=== PATIENT | female | born 1930 | race Caucasian/White ===

== ENCOUNTER 2016-05-03 13:09 | Emergency (ER) | payer MEDICARE, OTHER ==
[2016-05-03] MEDS ORDERED: Sodium Chloride 0.9% 1,000 ML IV ONE (13:42)
[2016-05-03] MEDS ORDERED: Sodium Chloride 0.9% 10 ML Syringe FLUSH PRN (13:42)
[2016-05-03] MEDS ORDERED: Loperamide 2 MG Cap PO ONE (13:45)
[2016-05-03] MEDS ORDERED: Ondansetron 4 MG/2 ML SDV IV ONE (13:45)
[2016-05-03 14:24] LABS: CHLORIDE,CL 99 mmol/L (101-111); SODIUM,NA 134 mmol/L (135-145)
[2016-05-03 15:21] VITALS: BP 122/68
[2016-05-03] MEDS ORDERED: Ciprofloxacin in D5W 400 MG in Premix Bag 1 BAG IV ONE ×2 (15:33)
[2016-05-03] MEDS ORDERED: Ondansetron 4 MG Tab.DIS PO ONE (17:00)
--- NOTE | 2016-05-04 16:24 | ER ---
SUBJECTIVE: The patient is an 85-year-old female, who is brought in by her family because she has had some nausea, vomiting, and some diarrhea. Apparently, she had a UTI, it was diagnosed by Dr. Laguna, her PCP, and she was placed on Bactrim. However, urine cultures revealed the Bactrim was not the correct medicine and infection was resistant to Bactrim. She was then switched to Cipro, which the patient not tolerated very well. She has apparently gotten a couple doses of Cipro down, but missed many of them and began to have nausea, vomiting, and some diarrhea as well. She comes in because she has missed multiple doses. She is weak, tired, feels dehydrated, not able to keep anything down. She has kept her medicines down, however. No bites, stings, or rashes. No chest pain or shortness of breath. No syncope or near syncope. No headache. No chest pain. No melena. PAST MEDICAL HISTORY: Significant for hypertension, hypothyroidism, osteoarthritis, hyperlipidemia, urinary tract infections, CAD, angina, spinal fractures with surgical fixation. CURRENT MEDICATIONS: Include: 1. Levothyroxine 125 mcg p.o. daily. 2. Lisinopril 5 mg p.o. daily. 3. Metoprolol 100 mg p.o. daily. 4. Oxaprozin 2 tablets p.o. daily. 5. Lipitor 20 mg p.o. daily. 6. Ondansetron p.r.n. ALLERGIES: She states she is allergic to Celebrex, causes hives. Codeine causes hives. Meperidine causes hives. Propoxyphene causes hives. SOCIAL HISTORY: Lives alone. She is , retired, family is nearby. No substance abuse. REVIEW OF SYSTEMS: Fatigue, lethargy, general malaise, general weakness, feels dry. No headache. Syncope, or near syncope. No ENT issues, vision changes, chest pain, or shortness of breath. No abdominal pain at this point. She does have some mild chronic back pain. No new changes. No new falls or trauma. No lower extremity swelling. She does have diarrhea, nausea, vomiting, she does not tolerate the Cipro. OBJECTIVE: Vital Signs: Height is 1.52 meters, weight is 47 kg, blood pressure is 122/68, respiratory rate 16, oxygen is 100% on room air. She is afebrile. Heart rate is 112. General: Pleasant elderly little lady very thin and small. HEENT: Normocephalic and atraumatic. A and O x3. GCS of 15. Fairly good historian. Conjunctivae are clear. Mucous membranes are moist. Neck: Unremarkable. Chest: Clear. CV: RRR. Abdomen: Soft, benign. Atraumatic back. No CVAT. Extremities: No calf tenderness. No swelling. LAB/STUDIES: Blood cultures were obtained, stool occult blood was requested. Influenza was requested. White count was mildly elevated at 10.2, she has no anemia, platelets are normal. Differential non-remarkable. Sodium was mildly low 134, chloride 99, otherwise her potassium is normal. Her BUN and creatinine were elevated at 44 and 1.6. Glucose is 144. Her lactic acid was 2.0 and normal. Her total bili and LFTs were all normal. Amylase was normal. Her ketones in the serum were negative. Her urinalysis was yellow and cloudy, showed moderate occult blood, small amount of leukocyte esterase, negative nitrites, rare bacteria. Again, she has already been on Bactrim initially and then Cipro and so it is partially treated. EMERGENCY ROOM COURSE: A line was placed. The patient was given a liter of the capital IVF, blood was drawn, blood cultures were obtained. Guaiac stool was obtained. Influenza was obtained. She was given Cipro IV after cultures were obtained, in an attempt to try to catch her back up on antibiotics. She was given 1 tablet of Imodium, she was given multiple doses of Zofran. By the end of her long ER stay mostly was being observed to make sure she was doing okay, she was able to eat some crackers and then some applesauce and was feeling quite a bit better. She had multiple family with her because she was now holding down food and fluids and a prescription of Zofran will be given to her and she is much more stable. It was felt that she could thrive at home probably better than being in the hospital. She could be in her own environment with her own family. All of the workup and labs and her course were discussed with the patient and her attendant family, which includes her son and her daughters. Plan was thoroughly discussed and made, and she was then sent home with her family. ASSESSMENT: 1. Nonbloody nausea and vomiting. 2. Volume depletion/dehydration with IV rehydration given in the ER. 3. Diarrhea. 4. Ongoing urinary tract infection partially treated, but the patient unable to tolerate Cipro. 5. General weakness and fatigue. PLAN: Discharged the patient to home in stable and improved condition. She is now tolerating food and fluids, and she has been rehydrated and a prescription of Zofran is given to her. Stay with family. Fall precautions. Keep hydrated. Advanced diet is able. See PCP this next week or return for emergent issues. [facility] /[id number]
== END 2016-05-03 18:14 | disposition home or self-care (01) ==
LOC: DL.ED 13:09
DX: E86.0 Dehydration (principal); N39.0 Urinary tract infection, site not specified; I10 Essential (primary) hypertension; E03.9 Hypothyroidism, unspecified; M19.90 Unspecified osteoarthritis, unspecified site; I25.10 Atherosclerotic heart disease of native coronary artery without angina pectoris; Z88.5 Allergy status to narcotic agent; Z88.8 Allergy status to other drugs, medicaments and biological substances
CPT/HCPCS: 36415; 80053; 81001; 82009; 82150; 82272; 83605; 85025; 87040; 87804; 96365; 96367; 96375; 99284; A9270; J0744; J2405; J7030; J7050

== ENCOUNTER 2016-05-04 09:25 | Inpatient (IN) | payer MEDICARE, OTHER ==
[2016-05-04] MEDS ORDERED: Sodium Chloride 0.9% 1,000 ML IV ONE (10:15)
[2016-05-04] MEDS ORDERED: Ondansetron 4 MG/2 ML SDV IV ONE (10:16)
[2016-05-04] MEDS ORDERED: Iopamidol 612 MG/ML 50 ML SDV IVPUSH ONE (10:17)
--- NOTE | 2016-05-04 12:17 | ER ---
SUBJECTIVE: The patient is an 85-year-old female, who was seen yesterday in the emergency room, please reference this note, she came in because of some general weakness, some nausea and vomiting and a few episodes of diarrhea. She initially had been diagnosed with a UTI and was placed on Bactrim; however, when urine cultures were returned, it was found that Bactrim was resistant to treating the infection and she was then placed on Cipro. However, she did not tolerate the Cipro well. It upset her stomach and she had nausea, vomiting, and some diarrhea. She did not have any abdominal pain. At yesterday's appointment in the ER, she denied abdominal pain and her abdominal exam was benign. During yesterday's visit, she was given some IV fluids. She was given IV Zofran, and by the end of her visit after her extensive blood work and workup, and a long ER stay, she was able to eat crackers, eat some applesauce and was feeling much better. She had multiple family members with her, who felt they could take care of her and a prescription of Zofran was sent home with her. However, the last Zofran she received was the one she received in the hospital in the ER, she went home and she vomited all night, apparently was up every half hour vomiting, she did not take any further Zofran, she had been given Zofran ODTs so that she could take it regardless if she was vomiting. She did take another Zofran this morning at 6 a.m., but by that time, she vomited all night, had multiple episodes of diarrhea and was feeling very weak again. Her son did call the patient's PCP, Dr. Laguna, who then called this provider, and advised that he wanted the patient to be back to the ER and then to be admitted to the hospital. Upon admit to the ER this morning, the patient appears in her usual state, she is pleasant, smiling, interactive, she is with her son. She complains of vomiting all night. It was nonbloody, she admits to not taking the Zofran until this morning at 6 a.m. She has not eaten all night. She has had several episodes of diarrhea. No falls or trauma. No chest pain or shortness of breath. Mild abdominal discomfort. Otherwise back to her baseline state of yesterday when she arrived. She feels generally weak. She is very cooperative, interactive, and appropriate, however. PAST MEDICAL HISTORY: Significant for osteoarthritis, hypothyroidism, hypertension, hyperlipidemia, urinary tract infection, angina, spinal fracture with surgical fixation. CURRENT MEDICATIONS: Include: 1. Levothyroxine 125 mcg p.o. daily. 2. Lisinopril 5 mg p.o. daily. 3. Metoprolol 100 mg p.o. daily. 4. Oxaprozin 2 tablets p.o. daily. 5. Lipitor 20 mg p.o. daily. 6. Ondansetron given yesterday 4 mg q.6 hours p.r.n. ALLERGIES: She is allergic to Celebrex, causes hives. Codeine causes hives. Meperidine causes hives. Propoxyphene causes hives. SOCIAL HISTORY: She lives alone in her own home. She does have family around. REVIEW OF SYSTEMS: Fatigue. General weakness. Denies headache. Denies syncope. No ENT issues. No changes in vision. No chest pain. No shortness of breath. She has mild abdominal discomfort more from the vomiting. She has diarrhea as well. No new back pain. No new falls. No rash. Please see HPI. OBJECTIVE: Vital Signs: Height is 1.52 meters, weight is 47.2 kg, she is afebrile, heart rate is 104, blood pressure is 148/72, respiratory rate 18, and oxygen is 98% on room air. General: Appears at baseline, smiling, interactive. HEENT: Normocephalic and atraumatic. No distress. Nontoxic. Lungs: No respiratory distress. Extremities: Pulses are palpable in all 4 extremities well. Abdomen: Soft, fairly benign with some mild discomfort more in the midepigastric area. She does state she does have some cramping down below. Her abdomen appears atraumatic. Back: No CVAT. Extremities: No swelling. No calf tenderness. Skin: Clear. LAB/STUDIES: White count is elevated at 15.6, hemoglobin and hematocrit are normal, platelets are normal. Differential shows mild elevation of PMNs at 83.1. Sodium is mildly low 133, potassium is 4.0, chloride is 99. Her CO2 and gap are normal, BUN is 37, and her creatinine is 1.4, both are up from yesterday. Glucose is 150. A non-contrasted abdominopelvic CAT scan (non- contrasted secondary to the patient's GFR and creatinine and BUN), was performed, it does show some possible very early small bowel obstruction with slight air-fluid levels possibly representing an ileus. Otherwise nonspecific. She is having diarrhea. No acute diverticulitis, free air, or other changes. EMERGENCY ROOM COURSE: A line was started, and the patient was given IV fluids and IV Zofran. She remained stable. I did discuss the patient with Dr. Jasso, who is the hospitalist, and also Dr. Laguna was spoken to twice on the phone this morning about the patient and he wants her admitted. Dr. Jasso graciously agreed to admit the patient. ASSESSMENT: 1. Diarrhea with leukocytosis and abdominal discomfort with CT showing possible early small-bowel obstruction versus ileus. 2. Intractable nausea and vomiting. 3. Volume depletion/dehydration. 4. Acute renal failure likely secondary to volume depletion/dehydration, secondary to nausea, vomiting, and diarrhea. 5. Urinary tract infection, being treated initially with Bactrim and then changed to Cipro, the patient received IV Cipro yesterday. PLAN: Admit the patient to the hospital, she will continue to get IV fluids. We will keep her n.p.o. for now. She is getting Zofran. [facility] /[id number]
--- NOTE | 2016-05-04 12:17 | PCM.HP ---
H&P History of Present Illness - General Date of Service: 05/04/16 Admit Problem/Dx: UTI with nausea and Vomiting and also partial SBO Source of Information: Patient, Family History Limitations: Reports: No limitations - History of Present Illness Initial Comments - Free Text/Narative: This is a 85 Y/O F with PMHX of Hypertension, Hypothyroidiam, Dyslipidemia, Fibromyalgia ., Spinal sternosis S/P surgey ,CAD, past H/O surgery Hysterectomy , Total Rt Hip Arthroplasty and appendectomy. The pt was initially seen in Clinic by Dr. Lagnua on 04/19/16 for increased urinary Frequency and had U/C that showed E. Colli >100,000 and started her on Bactrim and 3 days later changed to Cipro but she was nauseated and has been having diarrhea 2-3 times a day for the last 4-5 days and did not take the Cipro, completed on 2-3 days therapy. She is not feeling well, came ED with diarrhea and nausea/Vomiting/ Dehydration. Had CT abd/pelvis ,showed there are multiple loops of dialated small bowel with air fluid level, this may represent ileus or early small bowel obstruction, diverticulosis of rectosigmoid, no diverticulitis. Onset of Symptoms: Reports: gradual Severity: moderate Associated Symptoms: Reports: nausea/vomiting - Related Data Allergies/Adverse Reactions: Allergies Allergy/AdvReac Type Severity Reaction Status Date / Time celecoxib [From Celebrex] Allergy Hives Verified 05/04/16 10:02 codeine Allergy Hives Verified 05/04/16 10:02 meperidine Allergy Hives Verified 05/04/16 10:02 propoxyphene Allergy Hives Verified 05/04/16 10:02 Home Medications: Home Meds Levothyroxine 125 mcg PO DAILY 05/03/16 [History] Lisinopril 5 mg PO DAILY 05/03/16 [History] Metoprolol Succinate 100 mg PO DAILY 05/03/16 [History] Oxaprozin [Oxaprozin] 2 tab PO DAILY 05/03/16 [History] atorvaSTATin [Lipitor] 20 mg PO DAILY 05/03/16 [History] Ondansetron [Ondansetron ODT] 4 mg PO Q6H PRN 05/04/16 [History] Past Medical History Cardiovascular History: Reports: Angina, Hypertension Genitourinary History: Reports: UTI, recurrent Musculoskeletal History: Reports: Fracture, Other (see below) Other Musculoskeletal History: spinal fracture with surgical fixation last year Social & Family History - Tobacco Use Smoking Status *Q: Never Smoker - Caffeine Use Caffeine Use: Reports: None - Recreational Drug Use Recreational Drug Use: No H&P Review of Systems - Review of Systems: Review Of Systems: See Below General: Reports: weakness, decreased appetite. Denies: fever, chills HEENT: Denies: dysphasia, eye pain, post nasal drip, sore throat, visual changes Pulmonary: Denies: Shortness of Breath, Pleuritic Chest Pain, Cough, Sputum Cardiovascular: Denies: lightheadedness Gastrointestinal: Reports: Abdominal pain, Diarrhea, Decreased appetite, Nausea , Vomiting Genitourinary: Reports: dysuria, frequency, urgency. Denies: burning, hematuria , flank pain Musculoskeletal: Denies: neck pain, shoulder pain Skin: Denies: jaundice, bruising, pruritis, rash Neurological: Denies: Confusion, Syncope, Tingling Immunologic: Reports: no symptoms Exam - Exam Exam: See Below - Vital Signs Vital Signs: Last Vital Signs Temp 36.6 C 05/04/16 11:52 Pulse 101 H 05/04/16 11:52 Resp 18 05/04/16 11:52 BP 116/92 H 05/04/16 11:52 Pulse Ox 93 L 05/04/16 11:52 Weight: 47.174 kg - Exam Quality Assessment: DVT prophylaxis. No: supplemental oxygen, urinary catheter General: alert, oriented, cooperative, other (not in acute distress) HEENT: Conjunctiva clear, Hearing intact, Mucosa moist & pink, Normal nasal septum Neck: supple. No: lymphadenopathy, thyromegaly Lungs: Clear to auscultation, Normal respiratory effort Cardiovascular: regular rate, regular rhythm, systolic murmur Abdomen: normal bowel sounds, soft, tenderness. No: hepatomegaly (Female) Exam: Deferred Rectal (Female) Exam: Deferred Back Exam: normal inspection Extremities: normal pulses. No: cyanosis, calf tenderness, edema Skin: warm, dry, intact Neurological: cranial nerves intact, reflexes equal bilateral Neuro Extensive - Mental Status: alert, oriented x3, normal mood/affect, normal cognition, memory intact Neuro Extensive - Motor, Sensory, Reflexes: CN II-XII intact, normal gait, normal reflexes Psychiatric: alert, normal affect, normal mood - Patient Data Result Diagrams: 05/04/16 09:44 05/04/16 09:44 *Q Meaningful Use (ADM) - VTE *Q VTE Criteria *Q: - Stroke *Q Stroke Criteria *Q: - AMI *Q AMI Criteria *Q: - Problem List (1) Abdominal pain SNOMED Code(s): 51622378 ICD Code: R10.9 - UNSPECIFIED ABDOMINAL PAIN Status: Acute Current Visit : Yes (2) Diarrhea SNOMED Code(s): 85366559 ICD Code: R19.7 - DIARRHEA, UNSPECIFIED Status: Acute Current Visit: Yes (3) Nausea & vomiting SNOMED Code(s): 21822319 ICD Code: R11.2 - NAUSEA WITH VOMITING, UNSPECIFIED Status: Acute Current Visit: Yes (4) SBO (small bowel obstruction) SNOMED Code(s): 120478432 ICD Code: K56.69 - OTHER INTESTINAL OBSTRUCTION Status: Acute Current Visit: Yes (5) UTI (urinary tract infection) SNOMED Code(s): 14533678 ICD Code: N39.0 - URINARY TRACT INFECTION, SITE NOT SPECIFIED Status: Acute Current Visit: Yes (6) HTN (hypertension) SNOMED Code(s): 20450497 ICD Code: I10 - ESSENTIAL (PRIMARY) HYPERTENSION Status: Acute Current Visit: Yes Problem List Initiated/Reviewed/Updated: Yes Orders Last 24hrs: Medication Orders Sodium Chloride (Normal Saline) 1,000 mls @ 500 mls/hr IV .BOLUS ONE Stop: 05/04/16 12:14 Last Admin: 05/04/16 10:25 Dose: 500 mls/hr Sodium Chloride (Saline Flush) 10 ml FLUSH ASDIRECTED PRN PRN Reason: Keep Vein Open Assessment/Plan Comment:: This is a 85 Y/O F with PMHX of Hypertension, Hypothyroidiam, Dyslipidemia, Fibromyalgia ., Spinal sternosis S/P surgey ,CAD, past H/O surgery Hysterectomy , Total Rt Hip Arthroplasty and appendectomy. The pt was initially seen in Clinic by Dr. Laguna on 04/19/16 for increased urinary Frequency and had U/C that showed E. Colli >100,000 and started her on Bactrim and 3 days later changed to Cipro but she was nauseated and has been having diarrhea 2-3 times a day for the last 4-5 days and did not take the Cipro, completed on 2-3 days therapy. She is not feeling well, came ED with diarrhea and nausea/Vomiting/ Dehydration. Had CT abd/pelvis ,showed there are multiple loops of dialated small bowel with air fluid level, this may represent ileus or early small bowel obstruction, diverticulosis of rectosigmoid, no diverticulitis. IMPRESSION AND PLAN: 1. Abdominal Pain: This is likely from partial Small bowel obstruction -Will keep NPO -Will continue IV fluids D5 Ns at 100 ml/hr -Will Place NG tube with low wall suction -Will advance diet if No significant NG out put 2. Nausea and Vomiting: This is also likely from partial SBO -Will continue IV fluids -Will give IV Zofran 40 mg q6 hrs PRN -Keep NPO 3. UTI: The had U/A on 04/19/16 and it's E. Coli _will start Ceftriaxone at 1 gm IV q24 hrs 4. Diarrhea: This could be secondary to Abx/SBO -Will send stool for C. Diff -Continue IV fluids and NPO status 5. HTN: Will continue Home medication ( but will hold now for NPO) and give IV meds if BP is elevated 6, Hypothyroidism: Continue Home medication ( hold now for NPO) 7. GI prophylaxis: give IV protonix 8. DVT prophylaxis: Heparin 5000 units q8 hrs 9. Code Status: DNR/DNI
[2016-05-04] MEDS ORDERED: Ondansetron 4 MG/2 ML SDV IV PRN ×2 (14:07)
[2016-05-04] MEDS: cefTRIAXone 1 GM in Sodium Chloride 0.9% 50 ML IV SCH (14:15)
[2016-05-04] MEDS: Dextrose 5%-0.9% NaCl 1,000 ML IV SCH (14:15)
[2016-05-04] MEDS: Heparin Sodium 5,000 Units/ML Vial SUBCUT SCH ×2 (14:30→21:54)
[2016-05-05] MEDS: Dextrose 5%-0.9% NaCl 1,000 ML IV SCH ×3 (00:54→22:05)
[2016-05-05] MEDS: Heparin Sodium 5,000 Units/ML Vial SUBCUT SCH (05:43)
[2016-05-05] MEDS: Pantoprazole 40 MG Vial IVPUSH SCH (08:21)
[2016-05-05] MEDS: Sodium Chloride 0.9% 10 ML Syringe FLUSH PRN (08:22)
--- NOTE | 2016-05-05 10:07 | PCM.PN ---
- General Info Date of Service: 05/05/16 Admission Dx/Problem (Free Text): UTI , nausea and Vomiting and partial SBO Subjective Update: Pt today had no Nausea, NG tube draining >750 ml over last 16 hrs, coffee ground, No flatus yet Functional Status: Reports: pain controlled, urinating - Review of Systems General: Reports: Other (NPO). Denies: Fever, Chills HEENT: Denies: headaches, sinus congestion, sore throat Pulmonary: Denies: shortness of breath, cough, sputum, wheezing Cardiovascular: Denies: Chest Pain, Lightheadedness Gastrointestinal: Reports: Other (No flatus yet, admitted with SBO). Denies: Abdominal pain, Flatus, Nausea, Vomiting Genitourinary: Denies: dysuria, frequency, burning, urgency, flank pain Musculoskeletal: Denies: neck pain, shoulder pain, foot pain Neurological: Denies: Confusion, Numbness, Tremors Psychiatric: Denies: confusion, anxiety - Patient Data Vitals - most recent: Last Vital Signs Temp 36.8 C 05/05/16 08:21 Pulse 98 05/05/16 08:21 Resp 20 05/05/16 08:21 BP 120/63 05/05/16 08:21 Pulse Ox 96 05/05/16 08:21 Weight - most recent: 47.174 kg I&O - last 24 hours: Intake & Output 05/04/16 05/05/16 05/05/16 22:59 06:59 14:59 Intake Total 312 1213 Output Total 725 1000 Balance -413 213 Lab Results last 24 hrs: Laboratory Results - last 24 hr 05/05/16 05/05/16 Range/Units 07:50 07:50 WBC 11.4 H (5.0-10.0) 10^3/uL RBC 3.70 L (4.2-5.4) 10^6/uL Hgb 12.2 (12.0-16.0) g/dL Hct 35.7 L (37.0-47.0) % MCV 96.5 (80-100) fL MCH 33.0 (27.0-34.0) pg MCHC 34.2 (33.0-35.0) g/dL Plt Count 136 L (150-450) 10^3/uL Neut % (Auto) 76.5 H (42.2-75.2) % Lymph % (Auto) 15.3 L (20.5-50.1) % [place] % (Auto) 7.3 (2-8) % Eos % (Auto) 0.8 L (1.0-3.0) % Baso % (Auto) 0.1 (0.0-1.0) % Sodium 137 (135-145) mmol/L Potassium 3.6 (3.6-5.0) mmol/L Chloride 107 (101-111) mmol/L Carbon Dioxide 23.0 (21.0-31.0) mmol/L Anion Gap 10.6 BUN 26 H (7-18) mg/dL Creatinine 1.0 (0.6-1.3) mg/dL Est Cr Clr Drug Dosing 29.54 mL/min Estimated GFR (MDRD) 53 Glucose 129 H (74-105) mg/dL Calcium 8.2 L (8.4-10.2) mg/dl Med Orders - Current: Current Medications Heparin Sodium (Porcine) (Heparin Sodium) 5,000 units SUBCUT Q8HR ON LICENSE OF [facility] Last Admin: 05/05/16 05:43 Dose: 5,000 units Dextrose/Sodium Chloride (Dextrose 5%-Normal Saline) 1,000 mls @ 100 mls/hr IV ASDIRECTED ON LICENSE OF [facility] Last Admin: 05/05/16 00:54 Dose: 100 mls/hr Ceftriaxone Sodium 1 gm/ (Sodium Chloride) 50 mls @ 100 mls/hr IV Q24H ON LICENSE OF [facility] Last Admin: 05/04/16 14:15 Dose: 100 mls/hr Ondansetron HCl (Zofran) 4 mg IV Q6HR PRN PRN Reason: Nausea Last Admin: 05/04/16 15:36 Dose: 4 mg Pantoprazole Sodium (Protonix Iv) 40 mg IVPUSH DAILY ON LICENSE OF [facility] Last Admin: 05/05/16 08:21 Dose: 40 mg Sodium Chloride (Saline Flush) 10 ml FLUSH ASDIRECTED PRN PRN Reason: Keep Vein Open Last Admin: 05/05/16 08:22 Dose: 10 ml Discontinued Medications Sodium Chloride (Normal Saline) 1,000 mls @ 500 mls/hr IV .BOLUS ONE Stop: 05/04/16 12:14 Last Admin: 05/04/16 10:25 Dose: 500 mls/hr Iopamidol (Isovue-300 (61%)) 50 ml IVPUSH ONETIME ONE Stop: 05/04/16 10:18 Ondansetron HCl (Zofran) 4 mg IV ONETIME ONE Stop: 05/04/16 10:17 Last Admin: 05/04/16 10:25 Dose: 4 mg Ondansetron HCl (Zofran) 4 mg IV Q6H PRN PRN Reason: Nausea/Vomiting - Exam Quality Assessment: DVT prophylaxis. No: supplemental oxygen, urine catheter General: alert, oriented, cooperative, no acute distress HEENT: Pupils equal, Mucous membr. moist/pink Neck: supple, no JVD, no thyromegaly. No: lymphadenopathy Lungs: Clear to auscultation, Normal respiratory effort Cardiovascular: Regular Rate, Regular Rhythm, Murmurs Abdomen: bowel sounds present, soft, no tenderness, no distension, other ( Hypoactive Bowel sound). No: rebound, guarding (Female) Exam: Deferred Back Exam: normal inspection Extremities: no edema, no clubbing, no calf tenderness Skin: warm, dry, intact Neurological: no new focal deficit, normal speech, normal tone Psy/Mental Status: alert, normal affect, normal mood - Problem List & Annotations (1) Abdominal pain SNOMED Code(s): 61782002 Code(s): R10.9 - UNSPECIFIED ABDOMINAL PAIN Status: Acute Current Visit: Yes (2) Diarrhea SNOMED Code(s): 62888860 Code(s): R19.7 - DIARRHEA, UNSPECIFIED Status: Acute Current Visit: Yes (3) Nausea & vomiting SNOMED Code(s): 89149511 Code(s): R11.2 - NAUSEA WITH VOMITING, UNSPECIFIED Status: Acute Current Visit: Yes (4) SBO (small bowel obstruction) SNOMED Code(s): 660691969 Code(s): K56.69 - OTHER INTESTINAL OBSTRUCTION Status: Acute Current Visit: Yes (5) UTI (urinary tract infection) SNOMED Code(s): 22749432 Code(s): N39.0 - URINARY TRACT INFECTION, SITE NOT SPECIFIED Status: Acute Current Visit: Yes (6) HTN (hypertension) SNOMED Code(s): 09605027 Code(s): I10 - ESSENTIAL (PRIMARY) HYPERTENSION Status: Acute Current Visit: Yes - Problem List Review Problem List Initiated/Reviewed/Updated: Yes - My Orders Last 24 Hours: My Active Orders 05/04/16 13:00 cefTRIAXone [Rocephin] 1 gm Sodium Chloride 0.9% [Normal Saline] 50 ml IV Q24H 05/04/16 13:06 Bedrest Bathroom Privileges [RC] ASDIRECTED Up With Assistance [RC] ASDIRECTED Up to Chair [RC] ASDIRECTED Resuscitation Status Routine 05/04/16 13:08 Oxygen Therapy [RC] PRN Pulse Oximetry [RC] PRN 05/04/16 13:09 NG [Nasogastric Orogastric Tube Insertion] [OM.PC] Routine 05/04/16 13:13 ERI Hose [Antiembolic Hose] [OM.PC] Routine 05/04/16 13:14 Antiembolic Devices [RC] PER UNIT ROUTINE 05/04/16 13:15 Dextrose 5%-0.9% NaCl [Dextrose 5%-Normal Saline] 1,000 ml IV ASDIRECTED 05/04/16 14:00 Heparin Sodium 5,000 units SUBCUT Q8HR 05/04/16 14:07 Ondansetron [Zofran] 4 mg IV Q6HR PRN 05/05/16 09:00 Pantoprazole [Protonix IV] 40 mg IVPUSH DAILY - Plan Plan:: This is a 85 Y/O F with PMHX of Hypertension, Hypothyroidiam, Dyslipidemia, Fibromyalgia ., Spinal sternosis S/P surgey ,CAD, past H/O surgery Hysterectomy , Total Rt Hip Arthroplasty and appendectomy. The pt was initially seen in Clinic by Dr. Laguna on 04/19/16 for increased urinary Frequency and had U/C that showed E. Colli >100,000 and started her on Bactrim and 3 days later changed to Cipro but she was nauseated and has been having diarrhea 2-3 times a day for the last 4-5 days and did not take the Cipro, completed only 2-3 days therapy. She was not feeling well, came ED with diarrhea and nausea/Vomiting/ Dehydration. Had CT abd/pelvis ,showed there are multiple loops of dilated small bowel with air fluid level, this may represent ileus or early small bowel obstruction, diverticulosis of rectosigmoid, no diverticulitis. IMPRESSION AND PLAN: 1. Abdominal Pain/Partial Small Bowel obstruction: This is Pt has history of appendectomy and Hysterectomy -Will keep NPO, NG tube still draining -Will continue IV fluids D5 NS at 100 ml/hr -Keep e NG tube with low wall suction -Will advance diet if No significant NG out put 2. Nausea and Vomiting: This is also likely from partial SBO -Will continue IV fluids -Will give IV Zofran 40 mg q6 hrs PRN -Keep NPO 3. UTI: The pt had U/A on 04/19/16 and it's E. Coli _will continue Ceftriaxone at 1 gm IV q24 hrs 4. Diarrhea: This could be secondary to Abx/SBO -Will send stool for C. Diff but had no BM after admission -Continue IV fluids and NPO status 5. HTN: Will continue Home medication ( but will hold now for NPO) and give IV meds if BP is elevated 6, Hypothyroidism: Continue Home medication ( hold now for NPO) 7. GI prophylaxis: Continue IV protonix 8. DVT prophylaxis: Heparin 5000 units q8 hrs 9. Code Status: DNR/DNI
[2016-05-05] MEDS: cefTRIAXone 1 GM in Sodium Chloride 0.9% 50 ML IV SCH (13:19)
[2016-05-06 06:39] LABS: CHLORIDE,CL 109 mmol/L (101-111); SODIUM,NA 140 mmol/L (135-145)
[2016-05-06] MEDS ORDERED: Potassium Chloride 20 MEQ in Premix Bag 1 BAG IV ONE ×2 (07:10→19:49)
[2016-05-06] MEDS: Dextrose 5%-0.9% NaCl 1,000 ML IV SCH (08:11)
[2016-05-06] MEDS: Pantoprazole 40 MG Vial IVPUSH SCH (08:53)
[2016-05-06] MEDS: Enoxaparin 40 MG/0.4 ML Syringe SUBCUT SCH (08:53)
--- NOTE | 2016-05-06 09:51 | PCM.PN ---
- General Info Date of Service: 05/06/16 Subjective Update: Feels better today. tube was clamped and unclamping later did not show any significant output. - Patient Data Vitals - most recent: Last Vital Signs Temp 37.2 C 05/06/16 07:30 Pulse 80 05/06/16 07:30 Resp 20 05/06/16 07:30 BP 153/66 H 05/06/16 07:30 Pulse Ox 98 05/06/16 07:30 Weight - most recent: 47.174 kg I&O - last 24 hours: Intake & Output 05/05/16 05/06/16 05/06/16 22:59 06:59 14:59 Intake Total 643 Output Total 450 800 Balance 193 -800 Lab Results last 24 hrs: Laboratory Results - last 24 hr 05/06/16 05/06/16 05/06/16 Range/Units 06:10 06:12 06:12 WBC 7.3 (5.0-10.0) 10^3/uL RBC 3.14 L (4.2-5.4) 10^6/uL Hgb 10.2 L (12.0-16.0) g/dL Hct 31.1 L (37.0-47.0) % MCV 99.0 (80-100) fL MCH 32.5 (27.0-34.0) pg MCHC 32.8 L (33.0-35.0) g/dL Plt Count 114 L (150-450) 10^3/uL Neut % (Auto) 76.4 H (42.2-75.2) % Lymph % (Auto) 14.9 L (20.5-50.1) % [place] % (Auto) 6.9 (2-8) % Eos % (Auto) 1.7 (1.0-3.0) % Baso % (Auto) 0.1 (0.0-1.0) % Sodium 140 (135-145) mmol/L Potassium 3.3 L (3.6-5.0) mmol/L Chloride 109 (101-111) mmol/L Carbon Dioxide 23.0 (21.0-31.0) mmol/L Anion Gap 11.3 BUN 12 (7-18) mg/dL Creatinine 0.8 (0.6-1.3) mg/dL Est Cr Clr Drug Dosing 36.93 mL/min Estimated GFR (MDRD) > 60 Glucose 135 H (74-105) mg/dL Calcium 8.3 L (8.4-10.2) mg/dl Magnesium 1.3 L (1.8-2.5) mg/dL Med Orders - Current: Current Medications Enoxaparin Sodium (Lovenox) 40 mg SUBCUT DAILY [facility] Last Admin: 05/06/16 08:53 Dose: 40 mg Dextrose/Sodium Chloride (Dextrose 5%-Normal Saline) 1,000 mls @ 100 mls/hr IV ASDIRECTED [facility] Last Admin: 05/06/16 08:11 Dose: 100 mls/hr Ceftriaxone Sodium 1 gm/ (Sodium Chloride) 50 mls @ 100 mls/hr IV Q24H [facility] Last Admin: 05/05/16 13:19 Dose: 100 mls/hr Magnesium Sulfate/Dextrose 1 (gm/ Premix) 100 mls @ 100 mls/hr IV ONETIME ONE Stop: 05/06/16 10:47 Ondansetron HCl (Zofran) 4 mg IV Q6HR PRN PRN Reason: Nausea Last Admin: 05/04/16 15:36 Dose: 4 mg Pantoprazole Sodium (Protonix Iv) 40 mg IVPUSH DAILY [facility] Last Admin: 05/06/16 08:53 Dose: 40 mg Sodium Chloride (Saline Flush) 10 ml FLUSH ASDIRECTED PRN PRN Reason: Keep Vein Open Last Admin: 05/05/16 08:22 Dose: 10 ml Discontinued Medications Heparin Sodium (Porcine) (Heparin Sodium) 5,000 units SUBCUT Q8HR [facility] Last Admin: 05/05/16 05:43 Dose: 5,000 units Sodium Chloride (Normal Saline) 1,000 mls @ 500 mls/hr IV .BOLUS ONE Stop: 05/04/16 12:14 Last Admin: 05/04/16 10:25 Dose: 500 mls/hr Potassium Chloride 20 meq/ (Premix) 100 mls @ 50 mls/hr IV ONETIME ONE Stop: 05/06/16 09:09 Last Admin: 05/06/16 08:01 Dose: 50 mls/hr Iopamidol (Isovue-300 (61%)) 50 ml IVPUSH ONETIME ONE Stop: 05/04/16 10:18 Ondansetron HCl (Zofran) 4 mg IV ONETIME ONE Stop: 05/04/16 10:17 Last Admin: 05/04/16 10:25 Dose: 4 mg Ondansetron HCl (Zofran) 4 mg IV Q6H PRN PRN Reason: Nausea/Vomiting - Exam Lungs: Clear to auscultation, Normal respiratory effort Cardiovascular: Regular Rate, Regular Rhythm Abdomen: bowel sounds present, soft, no tenderness - Problem List & Annotations (1) SBO (small bowel obstruction) SNOMED Code(s): 402322373 Code(s): K56.69 - OTHER INTESTINAL OBSTRUCTION Status: Acute Onset Date: ~05/04/16 - Problem List Review Problem List Initiated/Reviewed/Updated: Yes - My Orders Last 24 Hours: My Active Orders 05/06/16 09:48 Magnesium Sulfate/D5W [Magnesium 1 GM in D5W 100 ML] 1 gm Premix Bag 1 bag IV ONETIME 05/06/16 Lunch Clear Liquid Diet [DIET] - Plan Plan:: 1. Small bowel obstruction - no significant output from the NGT, patient denies any abdominal pain and has been passing gas - advance diet to clear liquids - continue IV fluids 2. Hypokalemia -this was replaced with KCL 20meg IV, we will repeat K to ensure replacement 3. Hypomagnesemia - this will be replaced by Magnesium sulfate 1g and will repeat to ensure replacement 4. Hypertension: controlled 5. Hypothyroidism: continue synthroid 6. DVT prophylaxis: heparin 5000units every 8 hours
[2016-05-06] MEDS: cefTRIAXone 1 GM in Sodium Chloride 0.9% 50 ML IV SCH (13:36)
[2016-05-06] MEDS ORDERED: Potassium Chloride 10 MEQ Tab.ER PO ONE (19:45)
[2016-05-06] MEDS: Sodium Chloride 0.9% 10 ML Syringe FLUSH PRN ×2 (20:34→23:29)
[2016-05-07] MEDS: Levothyroxine 125 MCG Tab PO SCH (06:24)
[2016-05-07 06:50] LABS: CHLORIDE,CL 107 mmol/L (101-111); SODIUM,NA 136 mmol/L (135-145)
[2016-05-07] MEDS: Pantoprazole 40 MG Vial IVPUSH SCH (09:33)
[2016-05-07] MEDS: Metoprolol Succinate 50 MG Tab.ER PO SCH (09:37)
[2016-05-07] MEDS: atorvaSTATin 20 MG Tab PO SCH (09:38)
[2016-05-07] MEDS: Lisinopril 5 MG Tab PO SCH (09:38)
[2016-05-07] MEDS: Enoxaparin 40 MG/0.4 ML Syringe SUBCUT SCH (09:39)
[2016-05-07] MEDS: OXAPROZIN 600 MG PO SCH ×2 (10:15→10:28)
[2016-05-07] MEDS: Patient's Own Medication 1 Each PO SCH ×2 (10:25→13:21)
[2016-05-07] MEDS: cefTRIAXone 1 GM in Sodium Chloride 0.9% 50 ML IV SCH (13:21)
--- NOTE | 2016-05-07 14:20 | PCM.PN ---
- General Info Date of Service: 05/07/16 Subjective Update: patient feels good today. she was able to tolerate the full liquid diet for breakfast. occasional discomfort in the abdomen. no nausea. continues to pass gas. - Patient Data Vitals - most recent: Last Vital Signs Temp 37.4 C 05/07/16 11:16 Pulse 87 05/07/16 11:16 Resp 20 05/07/16 11:16 BP 124/54 L 05/07/16 11:16 Pulse Ox 98 05/07/16 13:00 Weight - most recent: 47.174 kg I&O - last 24 hours: Intake & Output 05/06/16 05/07/16 05/07/16 22:59 06:59 14:59 Intake Total 1348 475 200 Output Total 400 300 Balance 948 175 200 Lab Results last 24 hrs: Laboratory Results - last 24 hr 05/06/16 05/07/16 05/07/16 Range/Units 19:00 06:20 06:20 WBC 6.8 (5.0-10.0) 10^3/uL RBC 2.73 L (4.2-5.4) 10^6/uL Hgb 9.0 L (12.0-16.0) g/dL Hct 27.0 L (37.0-47.0) % MCV 98.9 (80-100) fL MCH 33.0 (27.0-34.0) pg MCHC 33.3 (33.0-35.0) g/dL Plt Count 113 L (150-450) 10^3/uL Sodium 136 (135-145) mmol/L Potassium 2.9 L 4.0 (3.6-5.0) mmol/L Chloride 107 (101-111) mmol/L Carbon Dioxide 23.0 (21.0-31.0) mmol/L Anion Gap 10.0 BUN 8 (7-18) mg/dL Creatinine 0.7 (0.6-1.3) mg/dL Est Cr Clr Drug Dosing 42.20 mL/min Estimated GFR (MDRD) > 60 Glucose 101 (74-105) mg/dL Calcium 8.2 L (8.4-10.2) mg/dl Magnesium 1.5 L 1.7 L (1.8-2.5) mg/dL Med Orders - Current: Current Medications Atorvastatin Calcium (Lipitor) 20 mg PO DAILY [facility] Last Admin: 05/07/16 09:38 Dose: 20 mg Enoxaparin Sodium (Lovenox) 40 mg SUBCUT DAILY [facility] Last Admin: 05/07/16 09:39 Dose: 40 mg Ceftriaxone Sodium 1 gm/ (Sodium Chloride) 50 mls @ 100 mls/hr IV Q24H [facility] Last Admin: 05/07/16 13:21 Dose: 100 mls/hr Levothyroxine Sodium (Levothyroxine) 125 mcg PO DAILY@0700 [facility] Last Admin: 05/07/16 06:24 Dose: 125 mcg Lisinopril (Prinivil) 5 mg PO DAILY [facility] Last Admin: 05/07/16 09:38 Dose: 5 mg Metoprolol Succinate (Toprol Xl) 100 mg PO DAILY [facility] Last Admin: 05/07/16 09:37 Dose: 100 mg Ondansetron HCl (Zofran) 4 mg IV Q6HR PRN PRN Reason: Nausea Last Admin: 05/04/16 15:36 Dose: 4 mg Pantoprazole Sodium (Protonix Iv) 40 mg IVPUSH DAILY [facility] Last Admin: 05/07/16 09:33 Dose: 40 mg Patient Own Medication (Ptom) 1 each PO 0900,1400 [facility] Last Admin: 05/07/16 13:21 Dose: 1 each Sodium Chloride (Saline Flush) 10 ml FLUSH ASDIRECTED PRN PRN Reason: Keep Vein Open Last Admin: 05/06/16 23:29 Dose: 10 ml Discontinued Medications Heparin Sodium (Porcine) (Heparin Sodium) 5,000 units SUBCUT Q8HR [facility] Last Admin: 05/05/16 05:43 Dose: 5,000 units Sodium Chloride (Normal Saline) 1,000 mls @ 500 mls/hr IV .BOLUS ONE Stop: 05/04/16 12:14 Last Admin: 05/04/16 10:25 Dose: 500 mls/hr Dextrose/Sodium Chloride (Dextrose 5%-Normal Saline) 1,000 mls @ 100 mls/hr IV ASDIRECTED [facility] Last Admin: 05/06/16 08:11 Dose: 100 mls/hr Potassium Chloride 20 meq/ (Premix) 100 mls @ 50 mls/hr IV ONETIME ONE Stop: 05/06/16 09:09 Last Admin: 05/06/16 08:01 Dose: 50 mls/hr Magnesium Sulfate/Dextrose 1 (gm/ Premix) 100 mls @ 100 mls/hr IV ONETIME ONE Stop: 05/06/16 10:47 Last Infusion: 05/06/16 11:52 Dose: Infused Potassium Chloride 20 meq/ (Premix) 100 mls @ 50 mls/hr IV ONETIME ONE Stop: 05/06/16 21:48 Last Infusion: 05/06/16 23:03 Dose: Infused Magnesium Sulfate/Dextrose 1 (gm/ Premix) 100 mls @ 100 mls/hr IV ONETIME ONE Stop: 05/06/16 20:49 Last Infusion: 05/06/16 23:37 Dose: Infused Magnesium Sulfate/Dextrose 1 (gm/ Premix) 100 mls @ 100 mls/hr IV ONETIME ONE Stop: 05/07/16 08:58 Last Infusion: 05/07/16 12:49 Dose: Infused Iopamidol (Isovue-300 (61%)) 50 ml IVPUSH ONETIME ONE Stop: 05/04/16 10:18 Last Admin: 05/06/16 11:16 Dose: Not Given Ondansetron HCl (Zofran) 4 mg IV ONETIME ONE Stop: 05/04/16 10:17 Last Admin: 05/04/16 10:25 Dose: 4 mg Ondansetron HCl (Zofran) 4 mg IV Q6H PRN PRN Reason: Nausea/Vomiting Oxaprozin 600mgPt ('s Own Med) 2 each PO DAILY [facility] Last Admin: 05/07/16 10:28 Dose: Not Given Potassium Chloride (Klor-Con 10) 40 meq PO ONETIME ONE Stop: 05/06/16 19:46 Last Admin: 05/06/16 20:32 Dose: 40 meq - Exam General: alert, oriented Lungs: Clear to auscultation, Normal respiratory effort Cardiovascular: Regular Rate, Regular Rhythm Abdomen: bowel sounds present, soft, no tenderness - Problem List & Annotations (1) SBO (small bowel obstruction) SNOMED Code(s): 427682836 Code(s): K56.69 - OTHER INTESTINAL OBSTRUCTION Status: Acute Current Visit: Yes - Problem List Review Problem List Initiated/Reviewed/Updated: Yes - My Orders Last 24 Hours: My Active Orders 05/06/16 18:30 Nasogastric Orogastric Tube Removal [OM.PC] Routine 05/07/16 07:00 Levothyroxine 125 mcg PO DAILY@0700 05/07/16 09:00 Lisinopril [Prinivil] 5 mg PO DAILY Metoprolol Succinate [Toprol XL] 100 mg PO DAILY atorvaSTATin [Lipitor] 20 mg PO DAILY 05/07/16 10:18 Patient's Own Medication [Ptom] 1 each PO 0900,1400 05/07/16 18:00 HEMOGLOBIN/HEMATOCRIT,HH [HEME] Timed 05/07/16 Lunch Soft Diet [DIET] - Plan Plan:: 1. Small bowel obstruction, IMPROVING - will advance to soft diet 2. Hypomagnesemia - this will be replaced by Magnesium sulfate 1g and will repeat to ensure replacement 3. Bicytopenia - anemia and thrombocytopenia - recheck H&H - no signs of bleeding; hemodynamically stable, no abdominal tenderness 4. Hypertension: controlled 5. Hypothyroidism: continue synthroid 6. DVT prophylaxis: heparin 5000units every 8 hours
[2016-05-08] MEDS: Levothyroxine 125 MCG Tab PO SCH (06:09)
[2016-05-08] MEDS: Lisinopril 5 MG Tab PO SCH (09:24)
[2016-05-08] MEDS: atorvaSTATin 20 MG Tab PO SCH (09:25)
[2016-05-08] MEDS: Metoprolol Succinate 50 MG Tab.ER PO SCH (09:25)
[2016-05-08] MEDS: Enoxaparin 40 MG/0.4 ML Syringe SUBCUT SCH (09:27)
[2016-05-08] MEDS: Patient's Own Medication 1 Each PO SCH ×2 (09:28→14:15)
[2016-05-08] MEDS: Sodium Chloride 0.9% 10 ML Syringe FLUSH PRN (10:04)
[2016-05-08] MEDS: Pantoprazole 40 MG Vial IVPUSH SCH (10:04)
[2016-05-08] MEDS: cefTRIAXone 1 GM in Sodium Chloride 0.9% 50 ML IV SCH (12:53)
[2016-05-08 14:59] VITALS: BP 108/96
--- NOTE | 2016-05-09 05:05 | DISCH ---
FINAL DIAGNOSES: 1. Small bowel obstruction. 2. Hypomagnesemia. 3. Pancytopenia. 4. Hypertension. 5. Hypothyroidism. SUMMARY OF HOSPITAL COURSE: Ms. Estephanie Burden is an 85-year-old female with medical history of hypertension, hypothyroidism, dyslipidemia, and fibromyalgia. The patient has had previous hysterectomy. She presented with nausea, vomiting, generalized body malaise. CT scan of the abdomen was obtained and it showed multiple loops of dilated small bowel with air-fluid levels, likely representing small bowel obstruction. The patient was kept n.p.o. on intravenous fluids. Had a nasogastric tube in place. Gradually, obstruction resolved. She did have UTI, which was treated initially with Cipro and later on ceftriaxone. She is feeling better and will be discharged home. She will follow up with primary care provider as outpatient. Her hemoglobin was up and down. It was down to 9 at one point and then up at 10.9. No evidence of active GI bleed. She will have a repeat CBC as outpatient. Follow up with primary MD. PHYSICAL EXAMINATION ON DISCHARGE: General: Patient is alert, oriented to place, time, and person. Head: Atraumatic and normocephalic. Ear, Nose, and Throat: Unremarkable. Neck: Supple. Chest: Clear to auscultation. Abdomen: Soft, nontender. Extremities: No pedal edema. No finger clubbing. [facility] /[id number]
== END 2016-05-08 15:10 | disposition home or self-care (01) | DRG 389 ==
LOC: DL.ED 09:25 → UNDOADMIN 11:34 → DL.MS 11:34
PROVIDERS: ADMIT Internal Medicine Nephrology; ATTEND Internal Medicine Nephrology
PROC: 0DH67UZ Insertion of Feeding Device into Stomach, Via Natural or Artificial Opening (ICD-10-PCS; principal; 2016-05-04)
PROC: 3E0G76Z Introduction of Nutritional Substance into Upper GI, Via Natural or Artificial Opening (ICD-10-PCS; 2016-05-04)
DX: N39.0 Urinary tract infection, site not specified (principal); K56.69 Other intestinal obstruction; R11.2 Nausea with vomiting, unspecified; N17.9 Acute kidney failure, unspecified; D61.818 Other pancytopenia; E83.42 Hypomagnesemia; I10 Essential (primary) hypertension; E03.9 Hypothyroidism, unspecified; E78.5 Hyperlipidemia, unspecified; M79.7 Fibromyalgia; I25.10 Atherosclerotic heart disease of native coronary artery without angina pectoris; Z96.641 Presence of right artificial hip joint; A49.8 Other bacterial infections of unspecified site; R19.7 Diarrhea, unspecified
CPT/HCPCS: 36415; 74176; 80048; 85025; 96361; 96374; 99285; J2405; J7030; 71010; 83735; 84132; 85014; 85018; 85027; A9270-GY; C9113; J0696; J1644; J1650; J3475; J3480; J7042; J7050

== ENCOUNTER → 2016-07-08 | Day surgery (SDC) | payer MEDICARE, OTHER ==
[~2016-07-08] MED LIST: Barium Sulfate 105% w/v Susp 1,900 ML Bottle PO ONE; Glycopyrrolate 0.2 MG/ML 2 ML SDV ONE; Lactated Ringers 1,000 ML IV SCH; Propofol 200 MG/20 ML SDV IV ONE; Propofol 200 MG/20 ML SDV ONE; Simethicone Drops 40 MG/0.6 ML 30 ML Bottle ONE
[2016-07-08 13:35] VITALS: BP 172/75
--- NOTE | 2016-07-08 13:54 | CR ---
{null, CLINICAL HISTORY: 85-year-old female with history of abdominal pain, diverticulitis and nausea, vomi ting who had a "failed colonoscopy". INTERPRETATION: 1. Total left hip prosthesis. 2. 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 Osteopenia. 3. Pronounced sigmoid spasm "obstructing" retrograde flow of barium for up to 15 minutes initially, subsequently relaxed revealing several [place] diverticula. No contrast extravasation. 4. Well prepped (clean) colon with normal course and caliber. No sign of mucosal wall ulceration, fi xed polypoid mass or annular constricting lesion. No stricture or mechanical bowel obstruction. 5. Surgically absent appendix. CONCLUSION: Sigmoid diverticulosis. Appendectomy. No sign of colon malignancy. }
--- NOTE | 2016-07-08 16:08 | OR ---
{null, DATE: 07/08/2016 PREOPERATIVE DIAGNOSIS: Lower gastrointestinal bleed. POSTOPERATIVE DIAGNOSES: Lower gastrointestinal bleed with multiple diverticula as well as internal hemorrhoids, maybe class 2. PROCEDURE: Attempt colonoscopy, but only up to 30. ANESTHESIA: IV sedation. ESTIMATED BLOOD LOSS: None. BRIEF HISTORY: Ms. Estephanie Burden is an 85-year-old female, who had an episode of anemia and questionable partial small-bowel obstruction. She was resuscitated and the anemia has subsequently improved. Of note, she has had previous colonoscopies that were done greater than 10 years ago, and 2 of them were unsuccessful due to the fact of the tortuosity of her colon. She therefore had to have a barium enema. In view of the fact that she has had another lower GI bleed, we would attempt to do a colonoscopy. I explained to her and her daughter that if we cannot get past tortuosity which has occurred in the past, we would proceed again with a barium enema, they were agreeable. Of note, she is very frail, but we were able to give her IV fluids and sedation without much problem. She was taken to the operating room. IV sedation was begun. She was placed on her left side down and a time-out was performed. A pillow was pertained between her knees. On perianal exam, there were several very small external hemorrhoids and a skin tag. On rectal, there was no mass. I then began to pass the scope. Her rectum actually had some varicosities that I could see within the mucosa itself, but no mass. As soon as I was able to get to the sigmoid, there was large number of very large diverticula, and the sigmoid was very tortuous. I very carefully tried to negotiate, past the turns as well as the large diverticula. I was very mindful not to instill a lot of air due to the size of the diverticula that I was seeing. I was only able to get about 30 cm, and at that point, I just did not feel comfortable going any further. I did not see any bleeding. There was no signs of polyps, just these large diverticula. I elected to abort and then proceed with a barium enema here today. As I came out, I could see that everything else looked fine. There was just one little telangiectatic type area, but no other signs of polyps or mucosal lesions. She does have internal hemorrhoids that were all again without ulceration, probably type 2. She tolerated this procedure well. I did go talk to the daughter and she understood and we will proceed with a barium enema here within an hour. [facility] [place] /[id number] }
--- NOTE | 2016-07-09 08:25 | CN ---
{nela, SERVICE DATE: 07/08/2016 HISTORY OF PRESENT ILLNESS: I had the opportunity to evaluate Ms. Estephanie Bruden the last time she was here for evaluation for colonoscopy. She had been hospitalized for some abdominal pain and thought to have a small-bowel obstruction and subsequent to that had some anemia. She has had a history in the past with some bleeding hemorrhoids and also has noted diverticular disease. On review of the chart, she has had multiple previous colonoscopies; however, it has been some years ago, and of note, there was difficulty and inability to get to the cecum. Since I last saw her, she states she has been doing well and she feels her bowels has actually gotten better. Since she has been on the Ensure, she feels that her strength has been significantly better. She has had no bloody stool. She has had no change in her allergies and no change in her medications. She states that she has been doing well. PHYSICAL EXAMINATION: Neurologic: GCS is 15. Lungs: Clear. Heart: Rhythm is regular. Abdomen: Soft, nontender, a little bit bloated. Extremities: Ankles are free of edema. LABORATORY DATA: Labs are being drawn at this moment. IMPRESSION AND PLAN: I had the opportunity with the daughter at the bedside to discuss the risks and benefits with Ms. Burden again of a colonoscopy. Risks include, but not limited to, bleeding, infection, heart attack, , injury to structures, not intended such as driving the scope through the bowel or perforating. I explained to her clear that she has had problems in the past of having difficult negotiating the scope, and if we cannot safely get to the cecum, we will abort, in view of the fact of her overall condition. The daughter is quite comfortable with this too. She did not have any other questions. Arrangements have been made, so someone will be with her the rest of the day and will go from there. [facility] /[id number] }
== END | disposition home or self-care (01) ==
LOC: DL.ENDO 07:39
PROVIDERS: ATTEND Surgery
DX: K57.30 Diverticulosis of large intestine without perforation or abscess without bleeding (principal); K64.8 Other hemorrhoids; K64.4 Residual hemorrhoidal skin tags; D64.9 Anemia, unspecified; I10 Essential (primary) hypertension; E78.5 Hyperlipidemia, unspecified; E03.9 Hypothyroidism, unspecified; Z90.710 Acquired absence of both cervix and uterus; Z98.890 Other specified postprocedural states; Z79.899 Other long term (current) drug therapy
CPT/HCPCS: 36415; 45330; 74280; 80048; 85027; A9270; J2704; J7120; 00810; 45378

== ENCOUNTER 2020-03-22 14:48 | Emergency (ER) | payer MEDICARE, OTHER ==
--- NOTE | 2020-03-22 14:50 | EDM.PDOC ---
ED HPI GENERAL MEDICAL PROBLEM - General Stated Complaint: CHEST PAIN/AMBULANCE Time Seen by Provider: 03/22/20 14:48 Source of Information: Reports: Patient, EMS, RN, RN Notes Reviewed History Limitations: Reports: No Limitations - History of Present Illness INITIAL COMMENTS - FREE TEXT/NARRATIVE: Patient presents to the ED via EMS with complaints of chest pain. The patient states the chest pain started suddenly this afternoon approximately one hour after her noon meal. She reports a similar episode about one week ago that spontaneously subsided following a few belches. Today she characterizes the pain as aching in nature at rates it at a 5/10; she reports improvement following one dose of Nitro en route. She denies recent illness, fever, shaking chills, headache, palpitations, shortness of breath, nausea, vomiting, or diarrhea. She denies a history of [place] or stroke. She reports she was seen by her primary care provider yesterday for similar symptoms and was prescribed Pantoprazole. She has taken one dose of this medication. She denies tobacco, alcohol, or recreational drug use. - Related Data Allergies Allergy/AdvReac Type Severity Reaction Status Date / Time celecoxib [From Celebrex] Allergy Hives Verified 01/16/18 22:24 codeine Allergy Hives Verified 01/16/18 22:24 meperidine Allergy Hives Verified 01/16/18 22:24 propoxyphene Allergy Hives Verified 01/16/18 22:24 Home Meds: Home Meds Lisinopril 5 mg PO DAILY 05/03/16 [History] Metoprolol Succinate 50 mg PO DAILY 05/03/16 [History] Oxaprozin 2 tab PO DAILY 05/03/16 [History] atorvaSTATin [Lipitor] 20 mg PO DAILY 05/03/16 [History] Ascorbic Acid [Vitamin C] 1 tab PO DAILY 07/05/16 [History] Calcium Carbonate/Vitamin D3 [Calcium 500 + Vit D Caplet] 1 tab PO DAILY 07/05/16 [History] Fexofenadine [Alma] 1 tab PO DAILY 07/05/16 [History] Isosorbide Mononitrate [Isosorbide Mononitrate ER] 1 tab PO DAILY 07/05/16 [History] Levothyroxine [Synthroid] 1 tab PO DAILY 07/05/16 [History] Multivitamin [Multivitamins] 1 tab PO DAILY 07/05/16 [History] Past Medical History HEENT History: Reports: Cataract Other HEENT History: HX of bilateral cataract surgery Cardiovascular History: Reports: Angina, Hypertension, [place] Other Cardiovascular History: Previous MD informed client she had blockages in heart. Client states had heart surgery and MD opted not to place stents. Respiratory History: Reports: None Other Respiratory History: Client states had whopping cough as a child. Gastrointestinal History: Reports: Diverticulosis, GERD Genitourinary History: Reports: UTI, Recurrent BUSINESS STRATEGY MANAGER History: Reports: Other BUSINESS STRATEGY MANAGER History: Client states has had 6 pregnancies Musculoskeletal History: Reports: Fracture, Other (See Below) Other Musculoskeletal History: spinal fracture with surgical fixation last year. 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 Immunologic History: Reports: None Oncologic (Cancer) History: Reports: None Dermatologic History: Reports: None - Infectious Disease History Infectious Disease History: Reports: Chicken Pox, Influenza, Measles, Pertussis (Whooping Cough), Shingles - Past Surgical History Head Surgeries/Procedures: Reports: None HEENT Surgical History: Reports: Cataract Surgery Cardiovascular Surgical History: Reports: Percutaneous Transluminal Angioplasty, Varicose Other Cardiovascular Surgeries/Procedures: cardiac catherization Respiratory Surgical History: Reports: None GI Surgical History: Reports: None, Appendectomy Female Surgical History: Reports: Hysterectomy Other Neurological Surgeries/Procedures: HX of spinal fixation Musculoskeletal Surgical History: Reports: Hip Replacement, Other (See Below) Other Musculoskeletal Surgeries/Procedures:: HX of spinal fixation. Left hip replacement. Oncologic Surgical History: Reports: None Social & Family History - Family History Family Medical History: No Pertinent Family History HEENT: Reports: None Cardiac: Reports: [place] Other Cardiac Family History: Client states father had heart attack Respiratory: Reports: None GI: Reports: Cirrhosis, Diverticulitis Other GI Family History: Client states mother had diverticulitis. Client father from cirrhosis. Client stated one of her sisters had lots of troubles with her bowels. : Reports: None OBGYN: Reports: Other (See Below) Other OBGYN Family History: Client states mother had one miscarriage. Musculoskeletal: Reports: Arthritis Neurological: Reports: Alzheimers Disease, Dementia, MS, Parkinson's Other Neurological Family History: Client states mother had Parkinson's and dementia. Client had brother with alzhimers. Client has daughter with MS. Psychiatric: Reports: None Endocrine/Metabolic: Reports: Other (See Below) Other Endocrine/Metabolic Family History: Client states she has a sister with diabetes. Client unable to recall if type I or type II. Hematologic: Reports: None Immunologic: Reports: None Dermatologic: Reports: None Oncologic: Reports: Breast, Colon Other Oncologic Family History: Client has two sisters with HX of breast cancer. Client had one sister that from colon cancer. - Caffeine Use Caffeine Use: Reports: Coffee ED ROS GENERAL - Review of Systems Review Of Systems: Comprehensive ROS is negative, except as noted in HPI. ED EXAM, GENERAL - Physical Exam Exam: See Below Exam Limited By: No Limitations General Appearance: Alert, No Apparent Distress Eye Exam: Bilateral Eye: EOMI, Normal Inspection, PERRL (3mm) Throat/Mouth: Normal Inspection, Normal Voice, No Airway Compromise Head: Atraumatic, Normocephalic Neck: Normal Inspection, Supple, Non-Tender, Full Range of Motion. No: Lymphadenopathy (L), Lymphadenopathy (R) Respiratory/Chest: No Respiratory Distress, Lungs Clear, Normal Breath Sounds, No Accessory Muscle Use, Chest Non-Tender Cardiovascular: Normal Peripheral Pulses, Regular Rate, Rhythm, No Gallop, No JVD, No Murmur, No Rub Peripheral Pulses: 2+: Radial (L), Radial (R), Dorsalis Pedis (L), Dorsalis Pedis (R) GI/Abdominal: Soft, Non-Tender, No Distention, No Mass, Pelvis Stable, Abnormal Bowel Sounds (Hyperactive) (Female) Exam: Deferred Rectal (Female) Exam: Deferred Back Exam: Normal Inspection, Full Range of Motion. No: CVA Tenderness (L), CVA Tenderness (R) Extremities: Non-Tender, Normal Capillary Refill, Pedal Edema (Trace, non- pitting bilaterally) Neurological: Alert, Oriented, CN II-XII Intact, Normal Cognition, No Motor/Sensory Deficits Psychiatric: Normal Affect, Normal Mood Skin Exam: Warm, Dry, Intact, Normal Color, No Rash. No: Ecchymosis, Erythema, Jaundice, Mottled, Pallor, Petechiae #1 Interpretation EKG Date: 03/22/20 Time: 15:03 Rhythm: NSR Rate (Beats/Min): 70 [place]: LAD-Left [place] Deviation P-Wave: Present (First degree AVB) QRS: Normal ST-T: Normal QT: Normal Comparison: NA - No Prior EKG EKG Interpretation Comments: NSR; First Degree AVB; Delayed conduction in QT in V3 and V4 Course - Vital Signs Last Recorded V/S: Last Vital Signs Temp 98.1 F 03/22/20 15:00 Pulse 73 03/22/20 15:00 Resp 18 03/22/20 15:00 BP 138/66 03/22/20 15:00 Pulse Ox 99 03/22/20 15:00 - Orders/Labs/Meds Orders: Active Orders 24 hr Category Date Time Status EKG Documentation Completion [RC] STAT Care 03/22/20 14:46 Active Labs: Laboratory Tests 03/22/20 03/22/20 Range/Units 15:02 15:02 WBC 7.4 (5.0-10.0) 10^3/uL RBC 3.57 L (4.2-5.4) 10^6/uL Hgb 12.2 (12.0-16.0) g/dL Hct 36.0 L (37.0-47.0) % MCV 100.8 H (80-100) fL MCH 34.2 H (27.0-34.0) pg MCHC 33.9 (33.0-35.0) g/dL Plt Count 188 (150-450) 10^3/uL Neut % (Auto) 67.8 (42.2-75.2) % Lymph % (Auto) 19.7 L (20.5-50.1) % Rhea % (Auto) 9.1 H (2-8) % Eos % (Auto) 3.0 (1.0-3.0) % Baso % (Auto) 0.4 (0.0-1.0) % Sodium 138 (136-145) mmol/L Potassium 4.0 (3.5-5.1) mmol/L Chloride 103 (98-107) mmol/L Carbon Dioxide 24 (21-32) mmol/L Anion Gap 15.0 H (7-13) mEq/L BUN 30 H (7-18) mg/dL Creatinine 1.08 H (0.55-1.02) mg/dL Est Cr Clr Drug Dosing 30.49 mL/min Estimated GFR (MDRD) 48 BUN/Creatinine Ratio 27.8 (No establ ref range) Glucose 128 H (74-99) mg/dL Calcium 9.1 (8.5-10.1) mg/dL Total Bilirubin 0.4 (0.2-1.0) mg/dL AST 25 (15-37) U/L ALT 17 (14-59) U/L Alkaline Phosphatase 38 L (46-116) U/L Troponin I < 0.017 (0.000-0.056) ng/mL B-Natriuretic Peptide 55 (0-100) pg/ml Total Protein 6.8 (6.4-8.2) g/dL Albumin 3.8 (3.4-5.0) g/dL Globulin 3.0 Albumin/Globulin Ratio 1.3 Amylase 79 (25-115) U/L Lipase 367 (73-393) U/L - Radiology Interpretation Free Text/Narrative:: [facility] Final Radiology Report Call: [phone] assistance Online chat: [email or web address] Name: Diamante HART Age: 89Years F Date: 03/22/2020 SSN: -- : [id number] Study: CR CHEST 1V FRONTAL Requesting Physician: Gladys Winston Images: 1 Addl Studies: Provided Clinical History: Chest pain Contrast: Contrast Medium: Contrast Amount: Contrast Method: CONFIDENTIALITY STATEMENT This report is intended only for use by the referring physician, and only in accordance with law. If you received this in error, call [phone]. Page 1 of 1 PROCEDURE INFORMATION: Exam: XR Chest, 1 View Exam date and time: 03/22/2020 2:50 PM Age: 89 years old Clinical indication: Chest pain TECHNIQUE: Imaging protocol: XR of the chest Views: 1 view. COMPARISON: CR Chest 1V Frontal 05/04/2016 4:46 PM FINDINGS: Lungs: Atelectatic changes noted within the lung bases, greater on the right. Pleural spaces: Unremarkable. No pleural effusion. No pneumothorax. Heart/Mediastinum: Unremarkable. No cardiomegaly. Diaphragm: There is nonspecific elevation of the right hemidiaphragm. Bones/joints: The thoracic spine demonstrates mild degenerative changes at multiple levels. IMPRESSION: 1. There is nonspecific elevation of the right hemidiaphragm. 2. Atelectatic changes noted within the lung bases, greater on the right. Thank you for allowing us to participate in the care of your patient. Dictated and Authenticated by: Marcos Murray DO 03/22/2020 3:01 PM Central Time ([place] & [place]) - Re-Assessments/Exams Free Text/Narrative Re-Assessment/Exam: 03/22/20 Given HPI, in the presence of what is likely a hiatal hernia via CXR, will consider hiatal hernia with GERD likely cause for chest discomfort. EKG revealed NSR with 1st degree AVB and QT delayed repolarization in V3 and V4 with no signs of acute myocardial injury. Troponin WNL. Amylase/Lipase WNL. CBC unremarkable for acute processes. Discussed findings of EKG, lab work, and imaging with patient. Discussed continued use of pantoprazole and returning to primary care provider, as previo usly scheduled. Discussed red flag signs and symptoms which would warrant reevaluation. Patient verbalized understanding and agreement with the plan of care. Departure - Departure Time of Disposition: 16:02 Disposition: Home, Self-Care 01 Condition: Good Clinical Impression: Hiatal hernia with GERD Instructions: Food Choices for Gastroesophageal Reflux Disease, Adult, Gastroesophageal Reflux Disease, Adult, [id number] Forms: ED Department Discharge Additional Instructions: 1.) Continue on previously prescribe pantoprazole. 2.) Follow up with your primary care provider as previously scheduled, or sooner as warranted. Sepsis Event Note (ED) - Focused Exam Vital Signs: Vital Signs Temp Pulse Resp BP Pulse Ox 03/22/20 15:00 98.1 F 73 18 138/66 99 - My Orders Last 24 Hours: My Active Orders 03/22/20 14:46 EKG Documentation Completion [RC] STAT - Assessment/Plan Last 24 Hours: My Active Orders 03/22/20 14:46 EKG Documentation Completion [RC] STAT
--- NOTE | 2020-03-22 15:01 | CR ---
PROCEDURE INFORMATION: Exam: XR Chest, 1 View Exam date and time: 03/22/2020 2:50 PM Age: 89 years old Clinical indication: Chest pain TECHNIQUE: Imaging protocol: XR of the chest Views: 1 view. COMPARISON: CR Chest 1V Frontal 05/04/2016 4:46 PM FINDINGS: Lungs: Atelectatic changes noted within the lung bases, greater on the right. Pleural spaces: Unremarkable. No pleural effusion. No pneumothorax. Heart/Mediastinum: Unremarkable. No cardiomegaly. Diaphragm: There is nonspecific elevation of the right hemidiaphragm. Bones/joints: The thoracic spine demonstrates mild degenerative changes at multiple levels. IMPRESSION: 1. There is nonspecific elevation of the right hemidiaphragm. 2. Atelectatic changes noted within the lung bases, greater on the right.
[2020-03-22 15:28] VITALS: BP 138/66; PULSE 73
[2020-03-22 15:28] LABS: CHLORIDE,CL 103 mmol/L (98-107); SODIUM,NA 138 mmol/L (136-145)
== END 2020-03-22 16:53 | disposition home or self-care (01) ==
LOC: DL.ED 14:48
DX: K44.1 Diaphragmatic hernia with gangrene (principal); K21.9 Gastro-esophageal reflux disease without esophagitis; I10 Essential (primary) hypertension; I25.2 Old myocardial infarction; E03.9 Hypothyroidism, unspecified; I44.0 Atrioventricular block, first degree; Z88.8 Allergy status to other drugs, medicaments and biological substances; Z88.5 Allergy status to narcotic agent; Z79.899 Other long term (current) drug therapy
CPT/HCPCS: 36415; 71045; 80053; 82150; 83690; 83880; 84484; 85025; 93005; 93010; 99283; 99285-25

== ENCOUNTER 2020-07-25 19:25 | Emergency (ER) | payer MEDICARE, OTHER ==
[2020-07-25] MEDS ORDERED: Ondansetron 4 MG Tab.DIS PO ONE (19:26)
[2020-07-25 20:01] VITALS: BP 134/64; PULSE 85
--- NOTE | 2020-07-25 20:25 | EDM.PDOC ---
ED HPI GENERAL MEDICAL PROBLEM - General Chief Complaint: Gastrointestinal Problem Stated Complaint: VOMITING / BLACK STOOL Time Seen by Provider: 07/25/20 20:25 Source of Information: Reports: Patient, RN, RN Notes Reviewed History Limitations: Reports: No Limitations - History of Present Illness INITIAL COMMENTS - FREE TEXT/NARRATIVE: Patient is a 89-year-old female who presents to ER with her daughter with complaint of stomach pain. Patient states most every time she eats she becomes nauseated and vomits. She states she has had diarrhea as well which began 1-1/2 to 2 weeks ago. She states her stools are black and loose. Patient denies any blood in the vomit. Patient states the pain comes and goes to the abdomen, states she is unsure if she has had a fever but admits to chills. Admits to nausea, vomiting, diarrhea. Patient states past history of small bowel obstruction approximately 7 years ago, also has a history of large hemorrhoid, diverticula. Patient denies chest pains or shortness of breath. Patient states she has some right hip pain. States she fractured that hip and the hip was pinned and she currently has bursitis in that right hip. Left hip has been replaced. Patient states she has had an appendectomy, hysterectomy. Onset: Gradual, Other (approximately 2 weeks) - Related Data Allergies Allergy/AdvReac Type Severity Reaction Status Date / Time celecoxib [From Celebrex] Allergy Hives Verified 01/16/18 22:24 codeine Allergy Hives Verified 01/16/18 22:24 meperidine Allergy Hives Verified 01/16/18 22:24 propoxyphene Allergy Hives Verified 01/16/18 22:24 Home Meds: Home Meds Lisinopril 5 mg PO DAILY 05/03/16 [History] Metoprolol Succinate 50 mg PO DAILY 05/03/16 [History] Oxaprozin 2 tab PO DAILY 05/03/16 [History] atorvaSTATin [Lipitor] 20 mg PO DAILY 05/03/16 [History] Ascorbic Acid [Vitamin C] 1 tab PO DAILY 07/05/16 [History] Calcium Carbonate/Vitamin D3 [Calcium 500 + Vit D Caplet] 1 tab PO DAILY 07/05/16 [History] Fexofenadine [Alma] 1 tab PO DAILY 07/05/16 [History] Isosorbide Mononitrate [Isosorbide Mononitrate ER] 1 tab PO DAILY 07/05/16 [History] Levothyroxine [Synthroid] 1 tab PO DAILY 07/05/16 [History] Multivitamin [Multivitamins] 1 tab PO DAILY 07/05/16 [History] Past Medical History HEENT History: Reports: Cataract Other HEENT History: HX of bilateral cataract surgery Cardiovascular History: Reports: Angina, Hypertension, RI Other Cardiovascular History: Previous MD informed client she had blockages in heart. Client states had heart surgery and MD opted not to place stents. Respiratory History: Reports: None Other Respiratory History: Client states had whopping cough as a child. Gastrointestinal History: Reports: Diverticulosis, GERD Genitourinary History: Reports: UTI, Recurrent FENCE RIDER History: Reports: Other FENCE RIDER History: Client states has had 6 pregnancies Musculoskeletal History: Reports: Fracture, Other (See Below) Other Musculoskeletal History: spinal fracture with surgical fixation last year. 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 Immunologic History: Reports: None Oncologic (Cancer) History: Reports: None Dermatologic History: Reports: None - Infectious Disease History Infectious Disease History: Reports: Chicken Pox, Influenza, Measles, Pertussis (Whooping Cough), Shingles - Past Surgical History Head Surgeries/Procedures: Reports: None HEENT Surgical History: Reports: Cataract Surgery Cardiovascular Surgical History: Reports: Percutaneous Transluminal Angioplasty, Varicose Other Cardiovascular Surgeries/Procedures: cardiac catherization Respiratory Surgical History: Reports: None GI Surgical History: Reports: None, Appendectomy Female Surgical History: Reports: Hysterectomy Other Neurological Surgeries/Procedures: HX of spinal fixation Musculoskeletal Surgical History: Reports: Hip Replacement, Other (See Below) Other Musculoskeletal Surgeries/Procedures:: HX of spinal fixation. Left hip replacement. Oncologic Surgical History: Reports: None Social & Family History - Family History Family Medical History: No Pertinent Family History HEENT: Reports: None Cardiac: Reports: RI Other Cardiac Family History: Client states father had heart attack Respiratory: Reports: None GI: Reports: Cirrhosis, Diverticulitis Other GI Family History: Client states mother had diverticulitis. Client father from cirrhosis. Client stated one of her sisters had lots of troubles with her bowels. : Reports: None OBGYN: Reports: Other (See Below) Other OBGYN Family History: Client states mother had one miscarriage. Musculoskeletal: Reports: Arthritis Neurological: Reports: Alzheimers Disease, Dementia, MS, Parkinson's Other Neurological Family History: Client states mother had Parkinson's and dementia. Client had brother with alzhimers. Client has daughter with MS. Psychiatric: Reports: None Endocrine/Metabolic: Reports: Other (See Below) Other Endocrine/Metabolic Family History: Client states she has a sister with diabetes. Client unable to recall if type I or type II. Hematologic: Reports: None Immunologic: Reports: None Dermatologic: Reports: None Oncologic: Reports: Breast, Colon Other Oncologic Family History: Client has two sisters with HX of breast cancer. Client had one sister that from colon cancer. - Tobacco Use Tobacco Use Status *Q: Never Tobacco User Second Hand Smoke Exposure: No - Caffeine Use Caffeine Use: Reports: None, Coffee - Recreational Drug Use Recreational Drug Use: No ED ROS GENERAL - Review of Systems Review Of Systems: Comprehensive ROS is negative, except as noted in HPI. ED EXAM, GI/ABD - Physical Exam Exam: See Below Exam Limited By: No Limitations General Appearance: Alert, WD/WN, No Apparent Distress, Other (weak) Eyes: Bilateral: Normal Appearance, EOMI Ears: Normal External Exam, Hearing Grossly Normal Nose: Normal Inspection Throat/Mouth: Normal Inspection, Normal Voice, No Airway Compromise Head: Atraumatic, Normocephalic Neck: Normal Inspection, Supple, Non-Tender, Full Range of Motion Respiratory/Chest: No Respiratory Distress, No Accessory Muscle Use, Chest Non- Tender, Decreased Breath Sounds Cardiovascular: Normal Peripheral Pulses, Regular Rate, Rhythm, No Edema, No Gallop, No JVD, No Murmur, No Rub GI/Abdominal Exam: Normal Bowel Sounds, Soft, No Organomegaly, No Distention, No Abnormal Bruit, No Mass, Pelvis Stable, Tender (diffuse) (Female) Exam: Deferred Rectal (Female) Exam: Normal Rectal Tone, Heme + Stool, Hemorrhoids (external) Back Exam: Normal Inspection, Full Range of Motion, NT Extremities: Normal Inspection, Normal Range of Motion, No Pedal Edema, Normal Capillary Refill, Leg Pain (right hip) Neurological: Alert, Oriented, CN II-XII Intact, Normal Cognition, No Motor/Sensory Deficits Psychiatric: Normal Affect, Normal Mood Skin Exam: Warm, Dry, Intact, Normal Color, No Rash Lymphatic: No Adenopathy #1 Interpretation EKG Date: 07/25/20 Time: 20:06 Rhythm: NSR Rate (Beats/Min): 77 [place]: Normal P-Wave: Present QRS: Normal ST-T: Normal QT: Normal Comparison: Change From Previous EKG EKG Interpretation Comments: previous EKG showed First degree AV block, not present on today's EKG. Course - Vital Signs Last Recorded V/S: Last Vital Signs Temp 97.7 F 07/25/20 19:53 Pulse 85 07/25/20 19:53 Resp 18 07/25/20 19:53 BP 134/64 07/25/20 19:53 Pulse Ox 98 07/25/20 19:53 - Orders/Labs/Meds Labs: Laboratory Tests 07/25/20 07/25/20 07/25/20 Range/Units 20:04 20:04 20:04 WBC 9.0 (5.0-10.0) 10^3/uL RBC 3.60 L (4.2-5.4) 10^6/uL Hgb 11.8 L (12.0-16.0) g/dL Hct 36.4 L (37.0-47.0) % MCV 101.1 H (80-100) fL MCH 32.8 (27.0-34.0) pg MCHC 32.4 L (33.0-35.0) g/dL Plt Count 320 D (150-450) 10^3/uL Neut % (Auto) 70.2 (42.2-75.2) % Lymph % (Auto) 20.1 L (20.5-50.1) % [place] % (Auto) 8.3 H (2-8) % Eos % (Auto) 1.3 (1.0-3.0) % Baso % (Auto) 0.1 (0.0-1.0) % PT 11.2 (9.0-12.0) SEC INR 1.1 (0.9-1.2) Sodium 136 (136-145) mmol/L Potassium 4.2 (3.5-5.1) mmol/L Chloride 100 (98-107) mmol/L Carbon Dioxide 24 (21-32) mmol/L Anion Gap 16.2 H (7-13) mEq/L BUN 31 H (7-18) mg/dL Creatinine 1.14 H (0.55-1.02) mg/dL Est Cr Clr Drug Dosing 24.03 mL/min Estimated GFR (MDRD) 45 BUN/Creatinine Ratio 27.2 (No establ ref range) Glucose 133 H (70-99) mg/dL Lactic Acid (0.4-2.0) mmol/L Calcium 9.6 (8.5-10.1) mg/dL Total Bilirubin 0.3 (0.2-1.0) mg/dL AST 20 (15-37) U/L ALT 14 (14-59) U/L Alkaline Phosphatase 43 L (46-116) U/L Troponin I High Sens 12 (<=51) pg/mL C-Reactive Protein < 0.2 (0.0-0.9) mg/dL Total Protein 7.3 (6.4-8.2) g/dL Albumin 3.7 (3.4-5.0) g/dL Globulin 3.6 Albumin/Globulin Ratio 1.0 SARS-CoV-2 RNA (MAYTE) (NEGATIVE) 07/25/20 07/25/20 Range/Units 20:04 21:09 WBC (5.0-10.0) 10^3/uL RBC (4.2-5.4) 10^6/uL Hgb (12.0-16.0) g/dL Hct (37.0-47.0) % MCV (80-100) fL MCH (27.0-34.0) pg MCHC (33.0-35.0) g/dL Plt Count (150-450) 10^3/uL Neut % (Auto) (42.2-75.2) % Lymph % (Auto) (20.5-50.1) % [place] % (Auto) (2-8) % Eos % (Auto) (1.0-3.0) % Baso % (Auto) (0.0-1.0) % PT (9.0-12.0) SEC INR (0.9-1.2) Sodium (136-145) mmol/L Potassium (3.5-5.1) mmol/L Chloride (98-107) mmol/L Carbon Dioxide (21-32) mmol/L Anion Gap (7-13) mEq/L BUN (7-18) mg/dL Creatinine (0.55-1.02) mg/dL Est Cr Clr Drug Dosing mL/min Estimated GFR (MDRD) BUN/Creatinine Ratio (No establ ref range) Glucose (70-99) mg/dL Lactic Acid 0.8 (0.4-2.0) mmol/L Calcium (8.5-10.1) mg/dL Total Bilirubin (0.2-1.0) mg/dL AST (15-37) U/L ALT (14-59) U/L Alkaline Phosphatase (46-116) U/L Troponin I High Sens (<=51) pg/mL C-Reactive Protein (0.0-0.9) mg/dL Total Protein (6.4-8.2) g/dL Albumin (3.4-5.0) g/dL Globulin Albumin/Globulin Ratio SARS-CoV-2 RNA (MAYTE) Negative (NEGATIVE) Meds: Medications Discontinued Medications Generic Name Dose Route Start Last Admin Trade Name Freq PRN Reason Stop Dose Admin Ondansetron HCl Confirm 07/26/20 00:02 07/26/20 00:39 Ondansetron 4 Mg Tab.Dis Administered 07/26/20 00:03 Not Given Dose 8 mg .ROUTE .STK-MED ONE Pantoprazole Sodium 80 mg 07/25/20 21:10 07/25/20 21:23 Pantoprazole 40 Mg Vial IVPUSH 07/25/20 21:11 80 mg .BOLUS ONE Administration - Radiology Interpretation Free Text/Narrative:: CT abdomen/Pelvis wo contrast: PROCEDURE INFORMATION: Exam: CT Abdomen And Pelvis Without Contrast Exam date and time: 07/25/2020 10:42 PM Age: 89 years old Clinical indication: Abdominal pain; Generalized; Prior surgery; Surgery date: 6 + months; Surgery type: Appendectomy, hysterectomy; Additional info: Abdominal pain, HX diverticulosis, blood in stools TECHNIQUE: Imaging protocol: Computed tomography of the abdomen and pelvis without contrast. Radiation optimization: All CT scans at this facility use at least one of these dose optimization techniques: automated exposure control; mA and/or kV adjustment per patient size (includes targeted exams where dose is matched to clinical indication); or iterative reconstruction. COMPARISON: CT Pelvis wo Cont 01/16/2018 10:37 PM FINDINGS: Lungs: Chronic appearing interstitial changes are present within the lung bases with areas of parenchymal scarring and atelectasis in the lower lobes. Liver: Normal. No mass. Gallbladder and bile ducts: Normal. No calcified stones. No ductal dilation. Pancreas: Normal. No ductal dilation. Spleen: Normal. No splenomegaly. Adrenal glands: Normal. No mass. Kidneys and ureters: Relatively large cyst is present arising from the upper pole of the left kidney measuring approximately 6.8 x 5.6 cm. No solid renal lesion present. There is mild hydronephrosis on the right. The right ureter is also mildly dilated, however, no definite ureteral calculus identified. This could be due to recently passed right-sided ureteral stone. Stomach and bowel: The stomach and small bowel are decompressed. There is no bowel obstruction. Scattered diverticula are present within the colon. No definite active diverticulitis. Appendix: No evidence of appendicitis. Intraperitoneal space: Unremarkable. No free air. No significant fluid collection. Vasculature: Moderate to advanced coronary atherosclerosis is present. Heart size is mildly enlarged. Lymph nodes: Unremarkable. No enlarged lymph nodes. Urinary bladder: Unremarkable as visualized. Reproductive: Unremarkable as visualized. Bones/joints: Moderate grade degenerative changes are present within the lumbar spine with bilateral postoperative change within the hips. A moderate grade compression fracture L3 is identified which is age indeterminate. If there is acute low back pain, consider MRI for further assessment. Soft tissues: Unremarkable. IMPRESSION: Chronic appearing changes as above with age indeterminate moderate grade L3 compression fracture. Consider MRI acute low back pain is present. COMMENTS: Consistent with the [employer]'s Incidental Findings Committee white paper (J Am Annita Radiol 2018): Any incidental renal lesion less than 1 cm or classified as too small to characterize, or any incidental cystic renal lesion characterized as simple- appearing, is likely benign. No follow-up imaging is recommended for these lesions per consensus recommendations based on imaging criteria. Thank you for allowing us to participate in the care of your patient. Dictated and Authenticated by: Deo Medina MD 07/25/2020 11:33 PM Central Time ([place] & [place]) See rad report - Re-Assessments/Exams Free Text/Narrative Re-Assessment/Exam: 07/26/20 03:38 Called [facility] to transfer patient, [facility] has no beds available at this time. Called [facility] in [place] and discussed patient case with Dr. Ward who states the patient has not had a significant drop in Hgb and the patient can follow up outpatient for endoscopy. Called Dr. Glynn, hospitalist here at [facility], who states he does not see enough to admit the patient even for observation. Reiterated the patient has been vomiting, decreased appetite, and diarrhea, patient is weak. He states the patient can be sent home on a PPI and with Zofran to follow up with PCP and GI referral. Patient's family not happy that the patient was not admitted. Family states they will call the pt's PCP in the morning. 07/26/20 03:42 Departure - Departure Time of Disposition: 00:09 Disposition: Home, Self-Care 01 Condition: Fair Clinical Impression: Nausea vomiting and diarrhea, Positive occult stool blood test, Weakness - Discharge Information *PRESCRIPTION DRUG MONITORING PROGRAM REVIEWED*: No *COPY OF PRESCRIPTION DRUG MONITORING REPORT IN PATIENT JUDE: No Instructions: Peptic Ulcer, Weakness, [id number], Nausea and Vomiting, Adult, [id number], Diarrhea, Adult, [id number], Bloody Diarrhea Referrals: Pedro Laguna MD [Primary Care Provider] - Forms: ED Department Discharge Additional Instructions: Rx: Zofran, Omeprazole Follow up with Dr. Laguna's office in the morning Return to the ER with any worsening of problems Rest Drink plenty of fluids Sepsis Event Note (ED) - Evaluation Sepsis Screening Result: No Definite Risk - Focused Exam Vital Signs: Vital Signs Temp Pulse Resp BP Pulse Ox 07/25/20 19:53 97.7 F 85 18 134/64 98
[2020-07-25 20:38] LABS: ANION GAP 16.2 mEq/L (7-13); CHLORIDE,CL 100 mmol/L (98-107); SODIUM,NA 136 mmol/L (136-145)
[2020-07-25] MEDS ORDERED: Pantoprazole 40 MG Vial IVPUSH ONE (21:10)
--- NOTE | 2020-07-25 23:34 | CT ---
PROCEDURE INFORMATION: Exam: CT Abdomen And Pelvis Without Contrast Exam date and time: 07/25/2020 10:42 PM Age: 89 years old Clinical indication: Abdominal pain; Generalized; Prior surgery; Surgery date: 6+ months; Surgery type: Appendectomy, hysterectomy; Additional info: Abdominal pain, HX diverticulosis, blood in stools TECHNIQUE: Imaging protocol: Computed tomography of the abdomen and pelvis without contrast. Radiation optimization: All CT scans at this facility use at least one of these dose optimization techniques: automated exposure control; mA and/or kV adjustment per patient size (includes targeted exams where dose is matched to clinical indication); or iterative reconstruction. COMPARISON: CT Pelvis wo Cont 01/16/2018 10:37 PM FINDINGS: Lungs: Chronic appearing interstitial changes are present within the lung bases with areas of parenchymal scarring and atelectasis in the lower lobes. Liver: Normal. No mass. Gallbladder and bile ducts: Normal. No calcified stones. No ductal dilation. Pancreas: Normal. No ductal dilation. Spleen: Normal. No splenomegaly. Adrenal glands: Normal. No mass. Kidneys and ureters: Relatively large cyst is present arising from the upper pole of the left kidney measuring approximately 6.8 x 5.6 cm. No solid renal lesion present. There is mild hydronephrosis on the right. The right ureter is also mildly dilated, however, no definite ureteral calculus identified. This could be due to recently passed right-sided ureteral stone. Stomach and bowel: The stomach and small bowel are decompressed. There is no bowel obstruction. Scattered diverticula are present within the colon. No definite active diverticulitis. Appendix: No evidence of appendicitis. Intraperitoneal space: Unremarkable. No free air. No significant fluid collection. Vasculature: Moderate to advanced coronary atherosclerosis is present. Heart size is mildly enlarged. Lymph nodes: Unremarkable. No enlarged lymph nodes. Urinary bladder: Unremarkable as visualized. Reproductive: Unremarkable as visualized. Bones/joints: Moderate grade degenerative changes are present within the lumbar spine with bilateral postoperative change within the hips. A moderate grade compression fracture L3 is identified which is age indeterminate. If there is acute low back pain, consider MRI for further assessment. Soft tissues: Unremarkable. IMPRESSION: Chronic appearing changes as above with age indeterminate moderate grade L3 compression fracture. Consider MRI acute low back pain is present. COMMENTS: Consistent with the [employer]'s Incidental Findings Committee white paper (J Am Annita Radiol 2018): Any incidental renal lesion less than 1 cm or classified as too small to characterize, or any incidental cystic renal lesion characterized as simple-appearing, is likely benign. No follow-up imaging is recommended for these lesions per consensus recommendations based on imaging criteria.
[2020-07-26] MEDS ORDERED: Ondansetron 4 MG Tab.DIS ONE (00:02)
== END 2020-07-26 00:35 | disposition home or self-care (01) ==
LOC: DL.ED 19:25
DX: K92.1 Melena (principal); R11.2 Nausea with vomiting, unspecified; R19.7 Diarrhea, unspecified; R53.1 Weakness; I10 Essential (primary) hypertension; I25.2 Old myocardial infarction; E03.9 Hypothyroidism, unspecified; Z79.899 Other long term (current) drug therapy; Z88.5 Allergy status to narcotic agent; Z88.6 Allergy status to analgesic agent; Z20.822 Contact with and (suspected) exposure to COVID-19
CPT/HCPCS: 36415; 74176; 80053; 82272; 83605; 84484; 85025; 85610; 86140; 93005; 93010; 96374; 99284; 99284-25; A9270-GY; C9113; U0002

== ENCOUNTER 2020-07-27 06:45 | Day surgery (SDC) | payer MEDICARE, OTHER ==
[~2020-07-27 06:45] MED LIST changes: -Barium Sulfate 105% w/v Susp 1,900 ML Bottle PO ONE; -Glycopyrrolate 0.2 MG/ML 2 ML SDV ONE; -Lactated Ringers 1,000 ML IV SCH; +Midazolam 1 MG/ML 2 ML SDV ONE; -Propofol 200 MG/20 ML SDV IV ONE; -Propofol 200 MG/20 ML SDV ONE; -Simethicone Drops 40 MG/0.6 ML 30 ML Bottle ONE; +fentaNYL 100 MCG/2 ML SDV ONE
[2020-07-27] MEDS ORDERED: Midazolam 1 MG/ML 2 ML SDV IV ONE ×3 (06:46→08:20)
[2020-07-27] MEDS ORDERED: fentaNYL 100 MCG/2 ML SDV IV ONE ×3 (06:46→08:21)
[2020-07-27] MEDS ORDERED: Dextrose 5%-0.45% NaCl 1,000 ML IV SCH (07:45)
[2020-07-27 11:12] VITALS: BP 121/67; PULSE 72
--- NOTE | 2020-07-27 12:40 | OR ---
DATE: 07/27/2020 PROCEDURES: Esophagogastroduodenoscopy and multiple pinch biopsies. INSTRUMENT USED: [id number] Olympus video panendoscope. PREMEDICATIONS: No oral or topical anesthesia used. Fentanyl 75 mcg intravenous, Versed 1 mg intravenous. Nasal O2 cannula. The procedure was done under pulse oximetry, BP recording, and manager monitoring. INDICATION: The patient with iron deficiency anemia and gastrointestinal bleeding. Esophagogastroduodenoscopy is performed for detection of any active erosive lesions. Sy esophagus and/or malignancy also under consideration. H pylori status to be determined. Endoscopic hemostasis therapy if needed. DESCRIPTION OF PROCEDURE: The scope was passed with ease. Adequate visualization of the esophagus was made from proximal to distal areas. No upper esophageal lesions identified. No distal esophageal stricture. No uphill or downhill esophageal varices. No Camille-Barbosa tear. No evidence of erosive esophagitis by Lucas criteria. No esophageal polyp or tumor mass identified. Z-line was seen at around 36 cm distal to the oral verge. No proximal gastric varices noted. Gastric fundus examination by retroflexion showed no polypoid lesions. No gastric ulcer, malignant mass, or vascular ectasia identified. Scattered gastric antral erosions were noted without bleeding from them. Duodenal bulb showed 1 cm sized benign-appearing ulcer without bleeding from it. No visible vessel identified. There was significant postbulb deformity noted. Multiple pinch biopsies were obtained from the gastric antrum and proximal body and sent for PyloriTek test for H pylori, and if negative in an hour, the tissue is to be sent for histopathology. No bleeding was noted from any of the visualized areas at the completion of examination. Photographs were taken of the duodenal bulb, gastric antrum, fundus, and distal esophagus. IMPRESSION: 1. Active duodenal ulcer. 2. Gastric antral erosions. 3. The patient tolerated the procedure well. [facility] /[id number]
== END 2020-07-27 10:45 | disposition home or self-care (01) ==
LOC: DL.ENDO 06:45
PROVIDERS: ATTEND Internal Medicine Gastroenterology
DX: K31.89 Other diseases of stomach and duodenum (principal); D50.9 Iron deficiency anemia, unspecified; K25.9 Gastric ulcer, unspecified as acute or chronic, without hemorrhage or perforation; K26.9 Duodenal ulcer, unspecified as acute or chronic, without hemorrhage or perforation; E78.5 Hyperlipidemia, unspecified; K21.9 Gastro-esophageal reflux disease without esophagitis; E03.9 Hypothyroidism, unspecified; I25.10 Atherosclerotic heart disease of native coronary artery without angina pectoris; R73.9 Hyperglycemia, unspecified; Z90.49 Acquired absence of other specified parts of digestive tract; Z98.890 Other specified postprocedural states; Z88.5 Allergy status to narcotic agent; Z88.8 Allergy status to other drugs, medicaments and biological substances
CPT/HCPCS: 87077; J2250; J3010; J7042

== ENCOUNTER 2020-09-12 14:33 | Emergency (ER) | payer MEDICARE, OTHER ==
[2020-09-12 14:55] VITALS: BP 148/105; PULSE 80
[2020-09-12 15:27] LABS: ANION GAP 14.7 mEq/L (7-13)
[2020-09-12] MEDS ORDERED: GI Cocktail Oral Solution 30 ML PO ONE (15:46)
--- NOTE | 2020-09-12 15:51 | EDM.PDOC ---
ED HPI GENERAL MEDICAL PROBLEM - General Chief Complaint: Gastrointestinal Problem Stated Complaint: BLEEDING ULCER Time Seen by Provider: 09/12/20 15:30 Source of Information: Reports: Patient, Family History Limitations: Reports: No Limitations - History of Present Illness INITIAL COMMENTS - FREE TEXT/NARRATIVE: This 89 yo female patient was brought to the ED by family due to continued abdominal pain and decreased appetite. The patient reports she was diagnosed with a gastric ulcer last month by Dr. Munoz. The patient reports she has been taking her medications as directed, but began to have the "burning" pain in her stomach over the past week. The patient reports she has been taking an arthritis medication for years due to arthritic swelling to her joints. The patient reports she has eaten 1/2 of a cinnamon roll this morning, 1/2 of a piece of chicken and 1/2 of a baked potato for lunch. The patient reports she does not feel like eating due to the abdominal burning pain. Duration: Day(s):, Constant Location: Reports: Abdomen (Upper abdominal burning) Quality: Reports: Burning Severity: Moderate Improves with: Reports: None Worsens with: Reports: None Context: Reports: Other Associated Symptoms: Reports: Other - Related Data Allergies Allergy/AdvReac Type Severity Reaction Status Date / Time celecoxib [From Celebrex] Allergy Hives Verified 07/27/20 08:14 codeine Allergy Hives Verified 07/27/20 08:14 meperidine Allergy Hives Verified 07/27/20 08:14 propoxyphene Allergy Hives Verified 07/27/20 08:14 Home Meds: Home Meds Lisinopril 5 mg PO DAILY 05/03/16 [History] Metoprolol Succinate 100 mg PO DAILY 05/03/16 [History] Oxaprozin 600 tab PO BID 05/03/16 [History] atorvaSTATin [Lipitor] 20 mg PO DAILY 05/03/16 [History] Ascorbic Acid [Vitamin C] 1 tab PO DAILY 07/05/16 [History] Calcium Carbonate/Vitamin D3 [Calcium 500 + Vit D Caplet] 1 tab PO DAILY 07/05/16 [History] Isosorbide Mononitrate [Isosorbide Mononitrate ER] 30 mg PO DAILY 07/05/16 [History] Multivitamin [Multivitamins] 1 tab PO DAILY 07/05/16 [History] Aspirin 81 mg PO DAILY 07/27/20 [History] Levothyroxine 125 mcg PO DAILY 07/27/20 [History] Past Medical History HEENT History: Reports: Cataract Other HEENT History: HX of bilateral cataract surgery Cardiovascular History: Reports: Angina, Hypertension, NM Other Cardiovascular History: Previous MD informed client she had blockages in heart. Client states had heart surgery and MD opted not to place stents. Respiratory History: Reports: None Other Respiratory History: Client states had whopping cough as a child. Gastrointestinal History: Reports: Diverticulosis, GERD Genitourinary History: Reports: UTI, Recurrent TUFTER HAND History: Reports: Other TUFTER HAND History: Client states has had 6 pregnancies Musculoskeletal History: Reports: Fracture, Other (See Below) Other Musculoskeletal History: spinal fracture with surgical fixation last year. 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 Immunologic History: Reports: None Oncologic (Cancer) History: Reports: None Dermatologic History: Reports: None - Infectious Disease History Infectious Disease History: Reports: Chicken Pox, Influenza, Measles, Pertussis (Whooping Cough), Shingles - Past Surgical History Head Surgeries/Procedures: Reports: None HEENT Surgical History: Reports: Cataract Surgery Cardiovascular Surgical History: Reports: Percutaneous Transluminal Angioplasty, Varicose Other Cardiovascular Surgeries/Procedures: cardiac catherization Respiratory Surgical History: Reports: None GI Surgical History: Reports: Appendectomy, Colonoscopy Female Surgical History: Reports: Hysterectomy Other Neurological Surgeries/Procedures: HX of spinal fixation Musculoskeletal Surgical History: Reports: Hip Replacement, Other (See Below) Other Musculoskeletal Surgeries/Procedures:: HX of spinal fixation. Left hip replacement. Oncologic Surgical History: Reports: None Social & Family History - Family History Family Medical History: No Pertinent Family History HEENT: Reports: None Cardiac: Reports: NM Other Cardiac Family History: Client states father had heart attack Respiratory: Reports: None GI: Reports: Cirrhosis, Diverticulitis Other GI Family History: Client states mother had diverticulitis. Client father from cirrhosis. Client stated one of her sisters had lots of troubles with her bowels. : Reports: None OBGYN: Reports: Other (See Below) Other OBGYN Family History: Client states mother had one miscarriage. Musculoskeletal: Reports: Arthritis Neurological: Reports: Alzheimers Disease, Dementia, MS, Parkinson's Other Neurological Family History: Client states mother had Parkinson's and dementia. Client had brother with alzhimers. Client has daughter with MS. Psychiatric: Reports: None Endocrine/Metabolic: Reports: Other (See Below) Other Endocrine/Metabolic Family History: Client states she has a sister with diabetes. Client unable to recall if type I or type II. Hematologic: Reports: None Immunologic: Reports: None Dermatologic: Reports: None Oncologic: Reports: Breast, Colon Other Oncologic Family History: Client has two sisters with HX of breast cancer. Client had one sister that from colon cancer. - Tobacco Use Tobacco Use Status *Q: Never Tobacco User - Caffeine Use Caffeine Use: Reports: None - Recreational Drug Use Recreational Drug Use: No ED ROS GENERAL - Review of Systems Review Of Systems: Comprehensive ROS is negative, except as noted in HPI. ED EXAM, GI/ABD - Physical Exam Exam: See Below Exam Limited By: No Limitations General Appearance: Alert, WD/WN, Moderate Distress, Thin Eyes: Bilateral: Normal Appearance, EOMI Ears: Normal External Exam, Normal Canal, Hearing Grossly Normal, Normal TMs Nose: Normal Inspection, Normal Mucosa, No Blood Throat/Mouth: Normal Inspection, Normal Lips, Normal Teeth, Normal Gums, Normal Oropharynx, Normal Voice, No Airway Compromise Head: Atraumatic, Normocephalic Neck: Normal Inspection, Supple, Non-Tender, Full Range of Motion Respiratory/Chest: No Respiratory Distress, Lungs Clear, Normal Breath Sounds, No Accessory Muscle Use, Chest Non-Tender Cardiovascular: Normal Peripheral Pulses, Regular Rate, Rhythm, No Edema, No Gallop, No JVD, No Murmur, No Rub GI/Abdominal Exam: Normal Bowel Sounds, Soft, No Distention, No Abnormal Bruit, No Mass, Tender (epigastric) (Female) Exam: Deferred Rectal (Female) Exam: Deferred Back Exam: Normal Inspection, Full Range of Motion, NT Extremities: Normal Inspection, Normal Range of Motion, Non-Tender, Normal Capillary Refill, No Pedal Edema Neurological: Alert, Oriented, CN II-XII Intact, Normal Cognition, Normal Gait, Normal Reflexes, No Motor/Sensory Deficits Psychiatric: Normal Affect, Normal Mood Skin Exam: Warm, Dry, Intact, Normal Color, No Rash Lymphatic: No Adenopathy Course - Vital Signs Last Recorded V/S: Last Vital Signs Temp 97.3 F 09/12/20 14:51 Pulse 80 09/12/20 14:51 Resp 16 09/12/20 14:51 BP 148/105 H 09/12/20 14:51 Pulse Ox 99 09/12/20 14:51 - Orders/Labs/Meds Orders: Active Orders 24 hr Category Date Time Status UA RFX ANITHA AND CULT IF INDIC [URIN] Urgent Lab 09/12/20 14:53 Ordered Labs: Laboratory Tests 09/12/20 09/12/20 09/12/20 Range/Units 15:03 15:03 15:03 WBC 7.1 (5.0-10.0) 10^3/uL RBC 3.49 L (4.2-5.4) 10^6/uL Hgb 11.1 L (12.0-16.0) g/dL Hct 34.3 L (37.0-47.0) % MCV 98.3 (80-100) fL MCH 31.8 (27.0-34.0) pg MCHC 32.4 L (33.0-35.0) g/dL Plt Count 237 D (150-450) 10^3/uL Neut % (Auto) 71.3 (42.2-75.2) % Lymph % (Auto) 16.4 L (20.5-50.1) % [place] % (Auto) 10.1 H (2-8) % Eos % (Auto) 1.8 (1.0-3.0) % Baso % (Auto) 0.4 (0.0-1.0) % PT 11.5 (9.0-12.0) SEC INR 1.1 (0.9-1.2) Sodium 136 (136-145) mmol/L Potassium 3.7 (3.5-5.1) mmol/L Chloride 98 (98-107) mmol/L Carbon Dioxide 27 (21-32) mmol/L Anion Gap 14.7 H (7-13) mEq/L BUN 33 H (7-18) mg/dL Creatinine 1.12 H (0.55-1.02) mg/dL Est Cr Clr Drug Dosing 24.46 mL/min Estimated GFR (MDRD) 46 BUN/Creatinine Ratio 29.5 (No establ ref range) Glucose 112 H (70-99) mg/dL Calcium 9.2 (8.5-10.1) mg/dL Total Bilirubin 0.2 (0.2-1.0) mg/dL AST 19 (15-37) U/L ALT 12 L (14-59) U/L Alkaline Phosphatase 38 L (46-116) U/L Total Protein 6.8 (6.4-8.2) g/dL Albumin 3.4 (3.4-5.0) g/dL Globulin 3.4 Albumin/Globulin Ratio 1.0 Amylase 61 (25-115) U/L Lipase 325 (73-393) U/L Meds: Medications Discontinued Medications Generic Name Dose Route Start Last Admin Trade Name Freq PRN Reason Stop Dose Admin Al Hydroxide/Mg Hydroxide 30 ml 09/12/20 15:46 09/12/20 15:51 Gi Cocktail Oral Solution 30 Ml PO 09/12/20 15:47 30 ml ONETIME ONE Administration Departure - Departure Time of Disposition: 16:41 Disposition: Home, Self-Care 01 Condition: Fair Clinical Impression: PUD (peptic ulcer disease) - Discharge Information *PRESCRIPTION DRUG MONITORING PROGRAM REVIEWED*: Not Applicable *COPY OF PRESCRIPTION DRUG MONITORING REPORT IN PATIENT JUDE: Not Applicable Instructions: Peptic Ulcer, [id number] Forms: ED Department Discharge Care Plan Goals: The patient was advised of the examination and lab results during the visit. The patient was given a GI Cocktail while in the ED and an oral dose of Omeprazole. The patient was discharged with a script for Omeprazole (20 mg) #30 to take 1 by mouth daily for 30 days. The patient should follow-up with her primary care facility for further evaluation of her medications and treatment. If the patient has any additional symptoms or concerns, the patient should either return to the emergency department or visit her primary care facility. Sepsis Event Note (ED) - Evaluation Sepsis Screening Result: No Definite Risk - Focused Exam Vital Signs: Vital Signs Temp Pulse Resp BP Pulse Ox 09/12/20 14:51 97.3 F 80 16 148/105 H 99 - My Orders Last 24 Hours: My Active Orders 09/12/20 14:53 UA RFX ANITHA AND CULT IF INDIC [URIN] Urgent - Assessment/Plan Last 24 Hours: My Active Orders 09/12/20 14:53 UA RFX ANITHA AND CULT IF INDIC [URIN] Urgent
[2020-09-12] MEDS ORDERED: Omeprazole 20 MG Cap.CR PO ONE (16:40)
== END 2020-09-12 16:51 | disposition home or self-care (01) ==
LOC: DL.ED 14:33
DX: K27.9 Peptic ulcer, site unspecified, unspecified as acute or chronic, without hemorrhage or perforation (principal); I10 Essential (primary) hypertension; I25.2 Old myocardial infarction; E03.9 Hypothyroidism, unspecified; Z88.1 Allergy status to other antibiotic agents; Z88.5 Allergy status to narcotic agent; Z88.8 Allergy status to other drugs, medicaments and biological substances; Z79.82 Long term (current) use of aspirin; Z79.899 Other long term (current) drug therapy
CPT/HCPCS: 36415; 80053; 82150; 83690; 85025; 85610; 99283; 99284; A9270-GY